=== PATIENT | female | born 1950 | race African-American/Black ===

== ENCOUNTER 2021-06-08 13:35 | Outpatient (CLI) | payer MEDICARE, MEDICAID, SELFPAY | END 2021-06-08 13:36 | disposition home or self-care (01) | PROVIDERS: PCP Internal Medicine; Visit Provider Internal Medicine | DX: Z86.69 Personal history of other diseases of the nervous system and sense organs (principal); H90.3 Sensorineural hearing loss, bilateral | CPT/HCPCS: 92557; 92567 ==

== ENCOUNTER 2021-06-08 15:00 | Outpatient (RCR) | payer MEDICAID, SELFPAY | END 2021-07-15 23:59 | disposition home or self-care (01) | LOC: ANHBWCAUD 15:00 | PROVIDERS: PCP Internal Medicine; Visit Provider Internal Medicine | DX: Z46.1 Encounter for fitting and adjustment of hearing aid (principal) | CPT/HCPCS: V5014; V5160; V5261; V5264 ==

== ENCOUNTER 2021-08-08 12:43 | Inpatient (IN) | payer MEDICARE, MEDICAID, SELFPAY ==
--- NOTE | ~2021-08-08 | XR_ITS ---
EXAMINATION: XR chest 2V DATE: 08/08/2021 13:59 INDICATION: Hemoptysis. TECHNIQUE: Frontal and lateral views of the chest were obtained. COMPARISON: None. FINDINGS: There are airspace opacities in right lower lung zone and left mid and lower lung zones. No pleural effusion or pneumothorax. The heart size is normal. IMPRESSION: 1. Airspace opacities in right lower lung zone and left mid and lower lung zones, consistent with hem orrhage versus pneumonia. Reviewed, dictated and finalized at location A. IMPRESSION: 1. Airspace opacities in right lower lung zone and left mid and lower lung zone s, consistent with hemorrhage versus pneumonia.
--- NOTE | ~2021-08-08 | XR_ITS ---
XR chest 2V 08/10/2021 13:09 Indication: Pneumonia Procedure: AP and lateral views of the chest Comparison: 08/08/2021 Findings: Bibasilar airspace disease, consistent with pneumonia. No significant effusion or pneumotho rax. No acute osseous abnormality. Impression: 1: Bibasilar airspace disease, consistent with pneumonia. Reviewed, dictated and finalized at location B. Impression: 1: Bibasilar airspace disease, consistent with pneumonia.
--- NOTE | ~2021-08-08 | US_ITS ---
EXAMINATION: US venous doppler UE DATE: 08/11/2021 10:27 INDICATION: Upper limb deep vein thrombosis. TECHNIQUE: Grayscale ultrasound images without and with compression and Doppler ultrasound images of the bilateral upper extremity veins were obtained. COMPARISON: None. FINDINGS: The visualized portions of the right internal jugular vein, subclavian vein, axillary vein, brachial veins, basilic vein, cephalic vein, radial vein, and ulnar vein are patent. The visualized portions of the right internal jugular vein, brachial veins, basilic vein, cephalic ve in, radial vein, and ulnar vein are patent. There is thrombus in left subclavian vein and axillary ve in. IMPRESSION: 1. Deep vein thrombosis involving left subclavian vein and left axillary vein. Reviewed, dictated and finalized at location A.
--- NOTE | ~2021-08-08 | CT_ITS ---
EXAMINATION: CTA chest PE protocol DATE: 08/08/2021 17:03 INDICATION: Hemoptysis. Assess for active hemorrhage. TECHNIQUE: Computed tomography (CT) pulmonary angiogram of the chest was performed with 100 mL Omnipa que-350 intravenous contrast. Additional 3D reconstructions utilizing coronal maximum intensity proje ction (MIP) were performed. Automated exposure control and iterative reconstruction technique were em ployed. The dose-length product was 782.26 mGy-cm. COMPARISON: None FINDINGS: Excellent contrast opacification of the pulmonary arteries. There is moderate streak artifact from de nse contrast in the right subclavian vein, superior vena cava and right atrium as well as several car diac monitoring leads. Mild to moderate basilar predominant scattered respiratory motion artifact. To gether this decreases sensitivity in some of the segmental and subsegmental pulmonary arteries most s ignificantly at the lung bases. No evident pulmonary embolism. Small left pleural effusion. There is a 2.4 x 1.6 cm thick-walled cavitary mass with spiculated margins at the right apex. Patchy consolida tion in the lingula and left lower lobe. There are linear and more subtle patchy groundglass opacitie s in the right lower lobe. Cardiomegaly. Atherosclerotic coronary artery calcifications. No pericardial effusion. There is reflu x of some contrast into the inferior vena cava and hepatic veins consistent with tricuspid regurgitat ion. Thoracic aorta is normal in caliber with no dissection. Enlargement of the central pulmonary art eries consistent with pulmonary arterial hypertension. Multinodular goiter with largest nodule measur ing 1.7 cm and the left thyroid lobe. Mildly prominent prevascular mediastinal lymph nodes measuring up to 9 mm in maximal short axis diameter. Small sliding-type hiatal hernia. 7.8 x 6.2 x 5.9 cm hypoenhancing mass which appears to arise from t he tail of the pancreas concerning for primary pancreatic cancer. The mass abuts the posterior margin of the gastric body with effacement of the intervening fat plane. No pathologically enlarged upper a bdominal lymphadenopathy. Moderate thoracic spondylosis with bridging osteophytes at multiple levels consistent with diffuse idiopathic skeletal hyperostosis (DISH). IMPRESSION: 1. No evident pulmonary embolism. Sensitivity decreased in the smaller segmental and subsegmental pul monary arteries particularly at the lung bases by respiratory motion and streak artifact. 2. 7.8 cm mass at the tail the pancreas concerning for primary pancreatic carcinoma. 3. 2.4 x 1.6 cm thick-walled cavitary mass at the right apex which could be infectious or malignant e tiology, the latter either primary or metastatic. 4. Patchy lung disease in the lingula, left lower and to lesser degree right lower lobes concerning f or pneumonia. 5. Cardiomegaly. 6. Enlargement of the central pulmonary arteries consistent with pulmonary arterial hypertension. 7. Small sliding-type hiatal hernia. 8. Multinodular goiter. Reviewed, dictated and finalized at location A. IMPRESSION: 1. No evident pulmonary embolism. Sensitivity decreased in the smaller segmenta l and subsegmental pulmonary arteries particularly at the lung bases by respira tory motion and streak artifact. 2. 7.8 cm mass at the tail the pancreas concerning for primary pancreatic carci noma. 3. 2.4 x 1.6 cm thick-walled cavitary mass at the right apex which could be inf ectious or malignant etiology, the latter either primary or metastatic. 4. Patchy lung disease in the lingula, left lower and to lesser degree right lo wer lobes concerning for pneumonia. 5. Cardiomegaly. 6. Enlargement of the central pulmonary arteries consistent with pulmonary iker rial hypertension. 7. Smal
[2021-08-08 12:53] VITALS: BP 101/71; PULSE 75; RESP 18; TEMP 37.1; O2SAT 99
--- NOTE | 2021-08-08 12:57 | ED.GENADULT ---
HPI - General Adult General Chief complaint: Unspecified Stated complaint: hemoptysis Time Seen by Provider: 08/08/21 12:57 Source: EMS, old records reviewed and other (Transferring physician) Mode of arrival: EMS Limitations: no limitations History of Present Illness HPI narrative: Patient is a 71-year-old female with a history of type 2 diabetes, symptomatic anemia, Covid, bilateral upper extremity DVT currently on anticoagulation with Lovenox, presenting to the emergency department for evaluation of hemoptysis. Patient has been admitted at her inpatient rehabilitation facility in which the patient started to develop large-volume hemoptysis this morning, thus the physician from the inpatient rehabilitation facility called to facilitate transfer of this patient to our emergency department patient reports cough with hemoptysis and large blood clot. Denies fever, chills, chest pain. Patient is quite hard of hearing and poor historian generally. Her transferring sit position felt that patient would need to be evaluated for the hemoptysis with anticoagulation discontinued but in the setting of numerous upper extremity DVTs there would need to be some intervention done to facilitate resolution of this. Per chart review, the patient was admitted at [facility] initially. Pt refusing to be transferred there. I will try to request records. Related Data Home Medications Medication Instructions Recorded Confirmed amlodipine 5 mg PO DAILY 08/06/21 08/06/21 brimonidine 1 drp EACH EYE BID 08/06/21 08/06/21 clonidine HCl 0.2 mg PO BID 08/06/21 08/06/21 famotidine 20 mg PO BID PRN 08/06/21 08/06/21 furosemide 40 mg PO BID 08/06/21 08/06/21 insulin aspart U-100 [Novolog 18 unit SUBCUT DAILY 08/06/21 08/06/21 Flexpen U-100 Insulin] insulin detemir U-100 [Levemir 20 unit SUBCUT HS 08/06/21 08/06/21 FlexTouch U-100 Insuln] latanoprost 1 drp EACH EYE QPM 08/06/21 08/06/21 lisinopril 10 mg PO DAILY 08/06/21 08/06/21 metoprolol tartrate 100 mg PO BID 08/06/21 08/06/21 simvastatin 20 mg PO DAILY 08/06/21 08/06/21 spironolactone 25 mg PO DAILY 08/06/21 08/06/21 Allergies Allergy/AdvReac Type Severity Reaction Status Date / Time No Known Allergies Allergy Verified 07/30/21 23:56 Review of Systems Review of Systems: CONSTITUTIONAL: Denies fever, chills, or sweats. EYES: Denies visual changes, redness, or discharge. ENT: Denies rhinorrhea, congestion, sore throat, or otalgia. CARDIOVASCULAR: Denies chest pain, palpitations, or edema. RESPIRATORY: Reports cough and hemoptysis GASTROINTESTINAL: Denies abdominal pain, nausea, vomiting, or diarrhea. GENITOURINARY: Denies dysuria or hematuria. SKIN: Denies rash or itching. MUSCULOSKELETAL: Denies back pain, joint pain, or myalgia. NEUROLOGIC: Denies headache, numbness, or weakness. [facility] Past Medical History Medical History (Updated 08/08/21 @ 19:01 by Maura Castro MD) Acute blood loss anemia Acute kidney injury Atrial fibrillation Chronic kidney disease Deep vein thrombosis (DVT) of left upper extremity Diabetes mellitus Diabetic neuropathy associated with diabetes mellitus due to underlying condition Diastolic congestive heart failure DKA (diabetic ketoacidosis) DVT prophylaxis Dysphagia Epistaxis due to trauma Hearing loss Hemoptysis HTN (hypertension) Hyperkalemia Hyperkalemia of Hypernatremia Localized swelling of both lower extremities Obstructive sleep apnea Pneumonia due to COVID-19 virus Social History Social History (Updated 08/02/21 @ 16:02 by Sonia Gamino DO) Social History: Lives alone in an apartment Smoking status: Never smoker Second hand tobacco smoke exposure: No Exam Narrative: GENERAL: Awake, alert, conversant, pt is hard of hearing HEAD: Normocephalic, atraumatic. EYES: PERRLA and EOMI. ENT: Nares clear, no rhinorrhea or epistaxis. Mucous membranes dry; dried blood present in the mouth and posterior oropharynx, no
--- NOTE | 2021-08-08 13:13 | ECG_ITS ---
Measurements Intervals [place] Rate: 72 P: 1 MS: 131 QRS: -18 QRSD: 77 T: -16 QT: 383 QTc: 422 Interpretive Statements SINUS RHYTHM LOW QRS VOLTAGE IN PRECORDIAL LEADS [QRS DEFLECTION < 1.0 mV IN CHEST LEADS] PATTERN CONSISTENT WITH PULMONARY DISEASE POOR R-WAVE PROGRESSION, CANNOT RULE OUT OLD ANTERIOR LA NO PREVIOUS ECG AVAILABLE FOR COMPARISON Electronically Signed On 08-08-2021 17:01:57 CDT by Amy Medina M.D.
[2021-08-08 15:08] LABS: Basophils Absolute Auto 0.1 K/mm3 (0.0-0.1); Basophils Percent Auto 0.7 % (0.2-1.2); Eosinophils Absolute Auto 0.2 K/mm3 (0-0.3); Eosinophils Percent Auto 2.4 % (0-4.4); Hemoglobin 8.5 g/dL (12.0-15.0); Immature Granulocyte Absolute 0.02 K/mm3 (0.00-0.031); Immature Granulocyte Percent A 0.3 % (0-0.5); Lymphocytes Absolute Auto 3.09 K/mm3 (0.9-3.2); Lymphocytes Percent Auto 43.1 % (18.3-44.2); Mean Corpuscular HGB Conc 31.5 g/dl (32-36); Mean Corpuscular Hemoglobin 28.9 pg (26-34); Mean Corpuscular Volume 91.8 fl (80-100); Mean Platelet Volume 11.2 fl (7.4-10.4); Monocytes Absolute Auto 0.6 K/mm3 (0.1-0.6); Monocytes Percent Auto 8.2 % (2.6-8.5); Neutrophils Absolute Auto 3.3 K/mm3 (1.3-6.7); Neutrophils Percent Auto 45.3 % (45.5-73.1); Platelet Count Result 285 k/mm3 (150-375); Red Blood Count 2.94 M/mm3 (4.2-5.4); Red Cell Distribution Width 15.9 % (11.5-14.5); White Blood Count 7.2 K/mm3 (4.5-10.0)
[2021-08-08 15:19] LABS: INR 1.1; Partial Thromboplastin Time 36.6 SECONDS (22.3-36.8); Prothrombin Time 14.1 Seconds (11.1-14.7)
[2021-08-08 15:20] LABS: Alanine Aminotransferase 76 U/L (4-35); Alkaline Phosphatase 122 U/L (38-126); Anion Gap 4 mmol/L (8-16); Aspartate Amino Transferase 123 U/L (14-36); Bilirubin,Total 0.3 mg/dL (0.2-1.3); Blood Urea Nitrogen 22 mg/dL (7-17); CRP 4.9 mg/dL (<1.0); Calcium 7.8 mg/dL (8.4-10.2); Carbon Dioxide 33 mmol/L (22-30); Chloride 100 mmol/L (98-107); Estimated CRCL calculation 46 ml/min; Estimated Glomerular Filt Rate 54; Glucose 181 mg/dL (65-110); Sodium 137 mmol/L (137-145)
[2021-08-08 15:29] LABS: NT Pro B Type Natriuretic Pept 2750 pg/mL (5-100); Troponin I 0.017 ng/mL (0.000-0.034)
[2021-08-08 20:00] VITALS: PULSE 81
[2021-08-08 21:04] LABS: Glucose Point of Care 138 mg/dl (65-105)
[2021-08-08 21:05] VITALS: BP 152/82; PULSE 87; RESP 18; TEMP 36.9; O2SAT 100
--- NOTE | 2021-08-08 21:13 | ADMGEN ---
This patient, Elena Magdaleno, was admitted to 3 [facility] Surg Room 312-01. Patient/family oriented to hospital policies and general routines including ID bracelet, bed and alarms, visiting hours, pain management, procedures, bathroom and other care routines, personal items, smoking policy, room service/diet, and visiting hours. Information on how to activate the Rapid Response Team has been discussed. Patient/Family are encouraged to report perceived risks to care and to ask questions if they do not understand what they are told or what they should do.
[2021-08-08 22:12] LABS: Hematocrit 28.1 % (37.0-47.0); Hemoglobin 8.4 g/dL (12.0-15.0)
--- NOTE | 2021-08-08 22:42 | PM.IMHP ---
H&P: HPI History of Present Illness Date/Time: 08/08/21 22:42 Chief Complaint: Hemoptysis Narrative: This is a 71-year-old female who presents from [facility] for hemoptysis/hematemesis. She was recently admitted for DKA along with COVID pneumonia from June 24 2021 was septic and was intubated during that admission. Patient improved and no extubated on 07/05/2021. She was subsequently discharged to rehabilitation on 07/30/2021. She was diagnosed with ERIN metabolic encephalopathy and has underlying history of type 2 diabetes hypertension congestive heart failure diastolic chronic anemia he had issues with ERIN with creatinine as high as 4 on admission with resolution by the time of discharge related to DKA and dehydration. During the hospital admission she also had episode of epistaxis for which ENT had seen and had bilateral nasal balloons in pay place. She subsequently required a trip to the OR for suction cautery to address multiple sites of bleeding bilaterally. Gelfoam was placed through the nasal cavity with subsequent resolution. During the rehabilitation she was diagnosed to have left upper extremity DVT for which he was started on Lovenox. She subsequently started having epistaxis and hemoptysis which she describes at something comes up in her throat and gets it out/spits it out. There was concern of hemoptysis/hematemesis in the ED for which further workup was done. She was found to have right lung cavitary mass concerning for malignancy but could be infectious as well there was patchy lung disease in the lingula left lower lobe concerning for pneumonia. There is also noted 7.8 cm mass at the tail pancreas concerning for primary pancreatic carcinoma. Her hemoglobin is around 8. During her previous admission she had dropped down to the point that she had required transfusion. Withhold findings above, she is getting admitted for further evaluation and management. Pulmonary, GI, Oncology has been consulted with regard to the findings of up. She is quite hard of hearing and a very poor historian likely related to her hearing. Review of Systems Review of Systems: CONSTITUTIONAL: Denies fever, chills, or sweats. EYES: Denies visual changes, redness, or discharge. ENT: Denies rhinorrhea, congestion, sore throat, or otalgia. CARDIOVASCULAR: Denies chest pain, palpitations, or edema. RESPIRATORY: Reports cough and hemoptysis GASTROINTESTINAL: Denies abdominal pain, nausea, vomiting, or diarrhea. GENITOURINARY: Denies dysuria or hematuria. SKIN: Denies rash or itching. MUSCULOSKELETAL: Denies back pain, joint pain, or myalgia. NEUROLOGIC: Denies headache, numbness, or weakness. [facility] Past Medical History Medical History (Updated 08/08/21 @ 19:01 by Maura Castro MD) Acute blood loss anemia Acute kidney injury Atrial fibrillation Chronic kidney disease Deep vein thrombosis (DVT) of left upper extremity Diabetes mellitus Diabetic neuropathy associated with diabetes mellitus due to underlying condition Diastolic congestive heart failure DKA (diabetic ketoacidosis) DVT prophylaxis Dysphagia Epistaxis due to trauma Hearing loss Hemoptysis HTN (hypertension) Hyperkalemia Hyperkalemia of Hypernatremia Localized swelling of both lower extremities Obstructive sleep apnea Pneumonia due to COVID-19 virus Social History Social History (Updated 08/02/21 @ 16:02 by Sonia Gamino DO) Social History: Lives alone in an apartment Smoking status: Never smoker Second hand tobacco smoke exposure: No Alcohol intake: unknown Substance use: unknown Spiritual care concerns: No Meds Home Medications and Allergies Home Medications Medication Instructions Recorded Confirmed Type brimonidine 1 drp EACH EYE BID 08/06/21 08/08/21 History clonidine HCl 0.2 mg PO BID 08/06/21 08/08/21 History famotidine 20 mg PO BID PRN 08/06/21 08/08/21 History furosemide 40 mg PO BID 08/06/21 08/08/21 History latano
[2021-08-08 23:40] VITALS: BMI 35.5
[2021-08-09] VITALS (12 sets, daily range): BP systolic 124–135; BP diastolic 72–88; PULSE 67–89; RESP 19–20; TEMP 35.9–36.2; O2SAT 94–100
[2021-08-09 00:55] LABS: Hematocrit 26.9 % (37.0-47.0); Hemoglobin 8.3 g/dL (12.0-15.0)
--- NOTE | 2021-08-09 06:16 | PC.NURSE ---
Dr Caraballo ordered a TB QFT gold in tube routine test. Spoke with Dr Caraballo regarding patient's isolation status. Dr Caraballo explained patient does not need to be on isolation as this time. Spoke with executive housekeeper Anu and she confirmed patient does not need to be on isolation at this time.
[2021-08-09 06:23] LABS: Basophils Percent Auto 0.5 % (0.2-1.2); Eosinophils Absolute Auto 0.2 K/mm3 (0-0.3); Eosinophils Percent Auto 3.7 % (0-4.4); Hematocrit 26.3 % (37.0-47.0); Hemoglobin 7.9 g/dL (12.0-15.0); Immature Granulocyte Absolute 0.02 K/mm3 (0.00-0.031); Immature Granulocyte Percent A 0.4 % (0-0.5); Lymphocytes Absolute Auto 2.43 K/mm3 (0.9-3.2); Lymphocytes Percent Auto 43.1 % (18.3-44.2); Mean Corpuscular Hemoglobin 28.9 pg (26-34); Mean Corpuscular Volume 96.3 fl (80-100); Mean Platelet Volume 11.5 fl (7.4-10.4); Monocytes Absolute Auto 0.6 K/mm3 (0.1-0.6); Neutrophils Absolute Auto 2.3 K/mm3 (1.3-6.7); Neutrophils Percent Auto 41.3 % (45.5-73.1); Platelet Count Result 252 k/mm3 (150-375); Red Blood Count 2.73 M/mm3 (4.2-5.4); Red Cell Distribution Width 16.1 % (11.5-14.5); White Blood Count 5.6 K/mm3 (4.5-10.0)
[2021-08-09 06:38] LABS: Alanine Aminotransferase 74 U/L (4-35); Albumin Level 2.8 g/dL (3.5-5.1); Alkaline Phosphatase 88 U/L (38-126); Anion Gap 4 mmol/L (8-16); Aspartate Amino Transferase 106 U/L (14-36); Bilirubin,Total 0.3 mg/dL (0.2-1.3); Blood Urea Nitrogen 21 mg/dL (7-17); Calcium 7.5 mg/dL (8.4-10.2); Carbon Dioxide 33 mmol/L (22-30); Chloride 98 mmol/L (98-107); Estimated CRCL calculation 55 ml/min; Estimated Glomerular Filt Rate > 60; Glucose 195 mg/dL (65-110); Potassium 3.9 mmol/L (3.4-5.0); Sodium 135 mmol/L (137-145)
[2021-08-09] MEDS: BRIMONIDINE TARTRATE 0.15% 5 ML OPHTH SOLN 1 DROP EACH EYE ×2 (07:58→17:28)
[2021-08-09] MEDS: TIZANIDINE HCL 2 MG TABLET PO (07:59)
[2021-08-09] MEDS: hydrALAZINE HCL 25 MG TABLET PO ×3 (07:59→17:29)
[2021-08-09] MEDS: METOPROLOL TARTRATE 50 MG TAB PO ×2 (07:59→20:23)
[2021-08-09] MEDS: SPIRONOLACTONE 12.5 MG TABLET PO (07:59)
[2021-08-09] MEDS: GABAPENTIN 100 MG CAPSULE PO ×2 (07:59→17:29)
[2021-08-09] MEDS: FAMOTIDINE 20 MG TABLET PO (07:59)
[2021-08-09] MEDS: cloNIDine HCL 0.2 MG TABLET PO ×2 (08:00→17:28)
[2021-08-09] MEDS: DOCUSATE SODIUM 100 MG CAPSULE PO (08:00)
[2021-08-09] MEDS: lisinopriL 5 MG TABLET PO (08:00)
[2021-08-09] MEDS: FUROSEMIDE 40 MG TABLET PO ×2 (08:00→17:29)
[2021-08-09] MEDS: INSULIN GLARGINE (*BKC) 100 UNITS/ML 10 UNITS SUB-Q (08:04)
--- NOTE | 2021-08-09 09:24 | PC.NURSE ---
LUIS Hdez to see pt later this afternoon around 5pm.
[2021-08-09] MEDS: OXYMETAZOLINE HCL 0.05% NAS 15 ML BTL (*BKC) 1 SPRAY NASAL ×2 (09:25→20:24)
[2021-08-09 09:39] LABS: Glucose Point of Care 161 mg/dl (65-105)
--- NOTE | 2021-08-09 09:49 | PM.CNPUL ---
Assessment and Plan Assessment and plan (1) Epistaxis: Code(s): R04.0 - Epistaxis Status: Acute (2) Cavitary lung disease: Code(s): J98.4 - Other disorders of lung Status: Acute Assessment and Plan: 71-year-old female with history of diabetes, was recently hospitalized at another hospital with 1 episode of unresponsiveness and acute respiratory failure related to DKA and pneumonia. Pneumonia could be due to COVID 19 and/or aspiration pneumonia for which she was treated with Unasyn IV followed by Augmentin p.o.. The patient presented with what is reported as hemoptysis although she has had no episodes of coughing up blood. Per RN, the patient was spitting out blood rather than coughing up blood which makes epistaxis very likely. Of note, she recently had recurrent epistaxis for which she required operative intervention by ENT in the OR during hospitalization at [facility]. On the admission chest CT, the patient has cavitary lesion in the apical segment of the right upper lobe as well as infiltrates in the left lung. Given the history of bilateral patchy infiltrates during last hospitalization, and also history of unresponsiveness, this could be possibly related to aspiration pneumonia. Differential diagnosis in addition to recent aspiration pneumonia includes mycobacterial or other fungal infection, and also malignancy. The patient does not appear to be septic and QuantiFERON gold TB test is pending. She has no respiratory symptoms such as cough or fever to suggest ongoing respiratory infection. She has been treated with antibiotics for possible lower respiratory tract infection. Plan is as follows. Continue with current treatment for now. I have requested previous chest imaging studies from [facility]. Following review of recent x-rays from the other facility, we will consider bronchoscopy if there is any evidence of new infection accounting for the cavitary lesion in the right lung or evidence of this being malignancy. (3) Mass of pancreas: Code(s): K86.89 - Other specified diseases of pancreas Status: Acute (4) Deep vein thrombosis of upper extremity: Code(s): I82.629 - Acute embolism and thrombosis of deep veins of unspecified upper extremity Status: Acute (5) Hearing loss: Code(s): H91.90 - Unspecified hearing loss, unspecified ear Status: Acute (6) Dysphagia: Code(s): R13.10 - Dysphagia, unspecified Status: Acute (7) Pneumonia due to COVID-19 virus: Code(s): U07.1 - COVID-19; J12.82 - Pneumonia due to coronavirus disease 2019 Status: Acute (8) Chronic kidney disease: Code(s): N18.9 - Chronic kidney disease, unspecified Status: Acute History of Present Illness History of Present Illness Consult date: 08/09/21 Chief complaint: Hemoptysis, cavitary lesion, anemia Narrative: this 71-year-old female was brought into the emergency room with 1 day history of possible hemoptysis. The patient has multiple medical problems including diabetes mellitus chronic kidney disease obstructive airway disease possibly due to asthma, GERD, hearing impairment. The patient has significant hearing impairment and this report is based on information obtained after reviewing the patient's records. The patient was able only to answer very simple questions due to severe hearing impairment. Reportedly the patient was hospitalized unresponsive at [facility] in late May of 2021. She was found to have DKA with blood sugar over 980, acute renal failure, as well as respiratory failure for which she was intubated. She was found to have a positive PCR test for COVID-19. Reportedly the chest imaging studies during the last hospitalization at [facility] showed bilateral patchy infiltrates. Chest imaging studies from [facility] are not available for review. The patient was transfused x
[2021-08-09 12:31] LABS: Hematocrit 26.4 % (37.0-47.0); Hemoglobin 8.1 g/dL (12.0-15.0)
[2021-08-09 16:31] LABS: Glucose Point of Care 117 mg/dl (65-105)
--- NOTE | 2021-08-09 17:46 | WPDGICN ---
Assessment and Plan Assessment and plan (1) Acute on chronic blood loss anemia: Code(s): D62 - Acute posthemorrhagic anemia Status: Acute Assessment and Plan: this is most likely from epistaxis (required recent treatment by ENT) and questionable hemoptysis (also she has cavitary lesion and recent hospitalization for COVID in icu) unlikely GI source, no need of EGD at this point (2) Epistaxis: Code(s): R04.0 - Epistaxis Status: Acute Assessment and Plan: by primary, ent evaluated patient in past lovenox on hold now (3) Cavitary lung disease: Code(s): J98.4 - Other disorders of lung Status: Acute (4) Mass of pancreas: Code(s): K86.89 - Other specified diseases of pancreas Status: Acute Assessment and Plan: located in tail of pancreas, large size no jaundice or signs of obstruction will need biopsy to confirm diagnosis but we arrange as outpatient (ideally it can be done with EUS of pancreas at another facility), ERCP is not option because location of mass oncology to see patient (5) Deep vein thrombosis of upper extremity: Code(s): I82.629 - Acute embolism and thrombosis of deep veins of unspecified upper extremity Status: Acute Assessment and Plan: lovenox on hold (6) Diabetes mellitus: Code(s): E11.9 - Type 2 diabetes mellitus without complications Status: Acute (7) Pneumonia due to COVID-19 virus: Code(s): U07.1 - COVID-19; J12.82 - Pneumonia due to coronavirus disease 2018 Status: Acute GI Consult Note Consult date/time: 08/09/21 17:46 Reason for consult: pancreatic lesion, anemia HPI: Elena Magdaleno is a 71 year old female with recent prolonged hospitalization with renal failure that resolved, DKA, COVID pneumonia earlier this year, she was in ICU intubated and subsequently discharged to rehabilitation. Based on records during the hospital admission she also had episode of epistaxis for which required ENT treatment, subsequently also was taken to the OR for suction cautery, gelfoam was placed through the nasal cavity with subsequent resolution. She also was diagnosed to have left upper extremity DVT and was started on Lovenox. She was sent here because started again with epistaxis and also blood comes up in her throat . CT scan was done in ER that was reviewed that showed right lung cavitary mass concerning for malignancy but could be infectious, also pneumonia, there is also 7.8 cm mass at the tail pancreas concerning for primary pancreatic carcinoma. Her hemoglobin has been ~ 8. No report of melena. Review of Systems Constitutional: Constitutional: Reports fatigue Eyes: Eyes: Denies blurry vision ENT: Denies Normal hearing present and Reports epistaxis Cardiovascular: Cardiovascular: Denies chest pain Respiratory: Respiratory: Reports cough Gastrointestinal: Gastrointestinal: Denies abdominal pain and Denies melena Genitourinary: Genitourinary: Denies hematuria Musculoskeletal: Musculoskeletal: Denies neck pain Integumentary/Breasts: Skin/Breast: Denies dry skin Neurologic: Denies headache(s) Psychiatric: Psychiatric: Denies behavioral changes [facility] Past Medical History Medical History (Updated 08/09/21 @ 17:54 by Orlin Russo MD) Acute blood loss anemia Acute kidney injury Acute on chronic blood loss anemia Atrial fibrillation Chronic kidney disease Deep vein thrombosis (DVT) of left upper extremity Diabetes mellitus Diabetic neuropathy associated with diabetes mellitus due to underlying condition Diastolic congestive heart failure DKA (diabetic ketoacidosis) DVT prophylaxis Dysphagia Epistaxis due to trauma Hearing loss Hemoptysis HTN (hypertension) Hyperkalemia Hyperkalemia of Hypernatremia Localized swelling of both lower extremities Obstructive sleep apnea Pneumonia due to COVID-19 virus Social History Social History (Updated 08/02/21 @ 16:02 by Sonia
--- NOTE | 2021-08-09 18:47 | WPDCN ---
Assessment and Plan Assessment and plan (1) Epistaxis: Code(s): R04.0 - Epistaxis Status: Acute Assessment and Plan: Nasal saline spray 6 times per day two large squirts, ok to blow nose, mupirocin abx ointment 4 times per day upfront, ok to use a good amount. No active bleeding. Nose has been packed prior to my exam. Will suction out packing over the next week. Tomorrow and Monday. Salazar is keeping the nose very moist with ointment and saline spray. HPI Data of Consult Date/Time: 08/09/21 18:47 Requesting Physician: Gerald Booth MD Primary Care Provider: Emmanuelle Muse, Consult Narrative Narrative: Elena Magdaleno is a 71 year old female with history of nose bleed. Also severe subjective hearing loss. ENT consulted for further evaluation. [facility] Past Medical History Medical History (Updated 08/09/21 @ 17:54 by Orlin Russo MD) Acute blood loss anemia Acute kidney injury Acute on chronic blood loss anemia Atrial fibrillation Chronic kidney disease Deep vein thrombosis (DVT) of left upper extremity Diabetes mellitus Diabetic neuropathy associated with diabetes mellitus due to underlying condition Diastolic congestive heart failure DKA (diabetic ketoacidosis) DVT prophylaxis Dysphagia Epistaxis due to trauma Hearing loss Hemoptysis HTN (hypertension) Hyperkalemia Hyperkalemia of Hypernatremia Localized swelling of both lower extremities Obstructive sleep apnea Pneumonia due to COVID-19 virus Social History Social History (Updated 08/02/21 @ 16:02 by Sonia Gamino DO) Social History: Lives alone in an apartment Smoking status: Never smoker Second hand tobacco smoke exposure: No Alcohol intake: unknown Substance use: unknown Spiritual care concerns: No Meds Home Medications and Allergies Home Medications Medication Instructions Recorded Confirmed Type brimonidine 1 drp EACH EYE BID 08/06/21 08/08/21 History clonidine HCl 0.2 mg PO BID 08/06/21 08/08/21 History famotidine 20 mg PO BID PRN 08/06/21 08/08/21 History furosemide 40 mg PO BID 08/06/21 08/08/21 History latanoprost 1 drp EACH EYE HS 08/06/21 08/08/21 History lisinopril 5 mg PO DAILY 08/06/21 08/08/21 History metoprolol tartrate 50 mg PO BID 08/06/21 08/08/21 History simvastatin 20 mg PO HS 08/06/21 08/08/21 History spironolactone 12.5 mg PO QAM 08/06/21 08/08/21 History acetaminophen 650 mg PO Q6H PRN 08/08/21 08/08/21 History albuterol sulfate 2.5 mg INHALATION QID PRN 08/08/21 08/08/21 History docusate sodium 100 mg PO DAILY 08/08/21 08/08/21 History enoxaparin 100 mg SUBCUT Q12H 08/08/21 08/08/21 History gabapentin 100 mg PO BID 08/08/21 08/08/21 History guaifenesin 200 mg PO Q6-12H PRN 08/08/21 08/08/21 History hydralazine 25 mg PO TID 08/08/21 08/08/21 History insulin glargine 5 unit SUBCUT HS 08/08/21 08/08/21 History insulin glargine 10 unit SUBCUT DAILY 08/08/21 08/08/21 History insulin lispro 1 sliding scale dose SUBCUT 08/08/21 08/08/21 History USEASDIRECTD ondansetron 4 mg PO Q6H 08/08/21 08/08/21 History polyethylene glycol 3350 17 g PO QAM PRN 08/08/21 08/08/21 History tizanidine 2 mg PO DAILY 08/08/21 08/08/21 History Allergies Allergy/AdvReac Type Severity Reaction Status Date / Time No Known Allergies Allergy Verified 07/30/21 23:56 Vital Signs Vital Signs - 24 hr 08/08/21 20:00 08/08/21 21:05 08/09/21 04:00 Temperature 36.9 C Pulse Rate 81 87 89 Respiratory Rate 18 Blood Pressure 152/82 H Pulse Oximetry 100 08/09/21 06:00 08/09/21 07:59 08/09/21 08:00 Temperature 36.1 C L Pulse Rate 84 82 82 Respiratory Rate 20 20 Blood Pressure 135/88 Pulse Oximetry 99 99 08/09/21 08:12 08/09/21 12:00 08/09/21 14:00 Temperature 35.9 C L Pulse Rate 67 67 Respiratory Rate 19 Blood Pressure 124/75 Pulse Oximetry 99 100 08/09/21 16:00 Temperature Pulse Rate 67 Respiratory Rate Blood Pressure Pulse Oximet
--- NOTE | 2021-08-09 18:55 | PDONCCN ---
HPI - Date of Consult Date/Time: 08/09/21 18:55 Requesting Physician: Gerald Booth MD Primary Care Provider: Emmanuelle Muse, - Consult Narrative Reason for consult: Lung and pancreatic mass Narrative: Elena Magdaleno is a 71 year old female who was diagnosed with COVID pneumonia in May of 2021 requiring intubation at that time. She was subsequently discharged to the rehab in July 30, 2021. During the rehab she was diagnosed with left upper extremity DVT for which she was started on Lovenox. She subsequently developed epistaxis and hemoptysis. She was brought into the hospital with nose bleed and hemoptysis. CT a chest showed no PE but 7.8 cm mass at the tail of the pancreas concerning for primary pancreatic carcinoma with 2.4 x 1.6 cm cavitary mass at the right apex. Patient is a lifelong nonsmoker. Labs also showed anemia with hemoglobin of 8.1. Patient is hard of hearing and did not bring her hearing aid. Most of the history was obtained with the help of the son present in the room. Review of Systems - Review of Systems All systems reviewed & are unremarkable except as noted in HPI and bel - Neurologic Denies hearing normal, Denies behavioral changes, Denies headache(s) [facility] Medical History: Medical History (Last Updated 08/09/21 @ 17:54 by Orlin Russo MD) Acute blood loss anemia Acute kidney injury Acute on chronic blood loss anemia Atrial fibrillation Chronic kidney disease Deep vein thrombosis (DVT) of left upper extremity Diabetes mellitus Diabetic neuropathy associated with diabetes mellitus due to underlying condition Diastolic congestive heart failure DKA (diabetic ketoacidosis) DVT prophylaxis Dysphagia Epistaxis due to trauma Hearing loss Hemoptysis HTN (hypertension) Hyperkalemia Hyperkalemia of Hypernatremia Localized swelling of both lower extremities Obstructive sleep apnea Pneumonia due to COVID-19 virus - Social History Social History: Social History (Last Updated 08/02/21 @ 16:02 by Sonia Gamino DO) Alcohol Use: Alcohol intake: unknown Substance Use: Substance use: unknown Others: Spiritual care concerns: No Smoking Status: Smoking status: Never smoker Second hand tobacco smoke exposure: No Meds Home Medications Medication Instructions Recorded Confirmed Type brimonidine 1 drp EACH EYE BID 08/06/21 08/08/21 History clonidine HCl 0.2 mg PO BID 08/06/21 08/08/21 History famotidine 20 mg PO BID PRN 08/06/21 08/08/21 History furosemide 40 mg PO BID 08/06/21 08/08/21 History latanoprost 1 drp EACH EYE HS 08/06/21 08/08/21 History lisinopril 5 mg PO DAILY 08/06/21 08/08/21 History metoprolol tartrate 50 mg PO BID 08/06/21 08/08/21 History simvastatin 20 mg PO HS 08/06/21 08/08/21 History spironolactone 12.5 mg PO QAM 08/06/21 08/08/21 History acetaminophen 650 mg PO Q6H PRN 08/08/21 08/08/21 History albuterol sulfate 2.5 mg INHALATION QID PRN 08/08/21 08/08/21 History docusate sodium 100 mg PO DAILY 08/08/21 08/08/21 History enoxaparin 100 mg SUBCUT Q12H 08/08/21 08/08/21 History gabapentin 100 mg PO BID 08/08/21 08/08/21 History guaifenesin 200 mg PO Q6-12H PRN 08/08/21 08/08/21 History hydralazine 25 mg PO TID 08/08/21 08/08/21 History insulin glargine 5 unit SUBCUT HS 08/08/21 08/08/21 History insulin glargine 10 unit SUBCUT DAILY 08/08/21 08/08/21 History insulin lispro 1 sliding scale dose SUBCUT 08/08/21 08/08/21 History USEASDIRECTD ondansetron 4 mg PO Q6H 08/08/21 08/08/21 History polyethylene glycol 3350 17 g PO QAM PRN 08/08/21 08/08/21 History tizanidine 2 mg PO DAILY 08/08/21 08/08/21 History Allergies Allergy/AdvReac Type Severity Reaction Status Date / Time No Known Allergies Allergy Verified 07/30/21 23:56 Results - Labs CBC & Chem 7: 08/09/21 12:21 08/09/21 05:46 Labs: Short CBC 03/13/22 03/14/22 03/14/22 Range/Units 22:02 00:44 05:46 WBC
[2021-08-09 19:58] LABS: Iron 64 ug/dL (37-170); Percent Iron Saturation 33 % (20-50)
[2021-08-09] MEDS: LATANOPROST 0.005% OP SOLN 2.5 ML BTL 1 DROP EACH EYE (20:23)
[2021-08-09] MEDS: SIMVASTATIN 20 MG TABLET PO (20:24)
[2021-08-09] MEDS: INSULIN GLARGINE (*BKC) 100 UNITS/ML SUB-Q (20:25)
[2021-08-09 20:41] LABS: Glucose Point of Care 228 mg/dl (65-105)
[2021-08-09 20:51] LABS: Folic Acid 13.4 ng/mL (2.76->20)
[2021-08-10] VITALS (13 sets, daily range): BP systolic 106–138; BP diastolic 57–89; PULSE 57–100; RESP 16–19; TEMP 36.1–36.3; O2SAT 90–100
[2021-08-10 07:52] LABS: Glucose Point of Care 144 mg/dl (65-105)
[2021-08-10] MEDS: BRIMONIDINE TARTRATE 0.15% 5 ML OPHTH SOLN 1 DROP EACH EYE ×2 (08:09→17:02)
[2021-08-10] MEDS: SALINE 0.65% NAS SOLN 44 ML BTL 1 SPRAY NASAL ×3 (08:09→20:29)
[2021-08-10] MEDS: GABAPENTIN 100 MG CAPSULE PO ×2 (08:09→16:21)
[2021-08-10] MEDS: TIZANIDINE HCL 2 MG TABLET PO (08:09)
[2021-08-10] MEDS: hydrALAZINE HCL 25 MG TABLET PO ×3 (08:09→16:21)
[2021-08-10] MEDS: FUROSEMIDE 40 MG TABLET PO ×2 (08:09→16:21)
[2021-08-10] MEDS: lisinopriL 5 MG TABLET PO (08:10)
[2021-08-10] MEDS: METOPROLOL TARTRATE 50 MG TAB PO ×2 (08:10→20:28)
[2021-08-10] MEDS: SPIRONOLACTONE 12.5 MG TABLET PO (08:10)
[2021-08-10] MEDS: INSULIN GLARGINE (*BKC) 100 UNITS/ML 10 UNITS SUB-Q (08:10)
[2021-08-10] MEDS: cloNIDine HCL 0.2 MG TABLET PO ×2 (08:10→16:21)
[2021-08-10] MEDS: OXYMETAZOLINE HCL 0.05% NAS 15 ML BTL (*BKC) 1 SPRAY NASAL ×2 (08:11→20:29)
--- NOTE | 2021-08-10 08:45 | PC.NURSE ---
discussed isolation status with Dr. Allen this morning. patient has lung cancer and abnormal chest xray. Dr. Allen asked to discuss with pulmnology and follow their instructions. Discussed with Dr. Brerios who states that he will review the cxr but feels strongly that patient has pneumonia, possibly from aspiration. Patient does not require isolation at this time
--- NOTE | 2021-08-10 11:14 | PM.PNPUL ---
Progress Note: A&P Additional Plan 71-year-old female with history of diabetes, was recently hospitalized at another hospital with 1 episode of unresponsiveness and acute respiratory failure related to DKA and pneumonia. Pneumonia could be due to COVID 19 and/or aspiration pneumonia for which she was treated with Unasyn IV followed by Augmentin p.o.. The patient presented with what is reported as hemoptysis although she has had no episodes of coughing up blood. Per RN, the patient was spitting out blood rather than coughing up blood which makes epistaxis very likely. Of note, she recently had recurrent epistaxis for which she required operative intervention by ENT in the OR during hospitalization at [facility]. On the admission chest CT, the patient has cavitary lesion in the apical segment of the right upper lobe as well as infiltrates in the left lung. Given the history of bilateral patchy infiltrates during last hospitalization, and also history of unresponsiveness, this could be possibly related to aspiration pneumonia. Differential diagnosis in addition to recent aspiration pneumonia includes mycobacterial or other fungal infection, and also malignancy. The patient does not appear to be septic and QuantiFERON gold TB test is pending. She has no respiratory symptoms such as cough or fever to suggest ongoing respiratory infection. Review of chest diagnostic studies during most recent hospitalization at [facility] showed that the patient had bilateral airspace opacities which were consistent with acute pneumonia. The right upper lobe cavitary lesion was reported on a chest x-ray report about 1 week after admission into the hospital, which again favors evolution of acute necrotic pneumonia rather than malignancy. Mycobacterial or fungal infection appears to be unlikely given the lack of respiratory symptoms such as cough fever night sweats and also normal WBC and mildly elevated CRP. Actual chest images taken at other facility is still pending. Continue with current treatment for now while waiting the chest imaging studies from [facility]. Get two view chest x-ray, repeat CRP, ESR. SCDs for DVT prophylaxis. (3) Mass of pancreas: Code(s): K86.89 - Other specified diseases of pancreas Status: Acute (4) Deep vein thrombosis of upper extremity: Code(s): I82.629 - Acute embolism and thrombosis of deep veins of unspecified upper extremity Status: Acute (5) Hearing loss: Code(s): H91.90 - Unspecified hearing loss, unspecified ear Status: Acute (6) Dysphagia: Code(s): R13.10 - Dysphagia, unspecified Status: Acute (7) Pneumonia due to COVID-19 virus: Code(s): U07.1 - COVID-19; J12.82 - Pneumonia due to coronavirus disease 2019 Status: Acute (8) Chronic kidney disease: Code(s): N18.9 - Chronic kidney disease, unspecified Status: Acute Subjective Date/time seen: 08/10/21 11:14 Patient has no new respiratory symptoms. She has been receiving treatment for epistaxis. She has no fever cough sputum production night sweats. Review of Systems Review of Systems: ROS unobtainable: Yes other ( Unobtainable due to severe hearing impairment.) Exam Narrative: GENERAL APPEARANCE: Well developed, well nourished, alert and cooperative, and appears to be in no acute distress While breathing ambient air SKIN: Inspection of the skin reveals no rashes, ulcerations or petechiae. HEENT: Sclerae anicteric and conjunctivae pink and moist. Extraocular movements were intact and pupils were equal. NECK: Supple. There was no thyroid enlargement, and no tenderness, or masses were felt. CHEST: Normal AP diameter and normal contour without any kyphoscoliosis. LUNGS: Auscultation of the lungs revealed crackles at left base posteriorly, no wheezing CARDIAC: There was a regular rate and rhythm without any murmurs. ABDOMEN: Soft and nontender with
[2021-08-10 11:55] LABS: Glucose Point of Care 181 mg/dl (65-105)
[2021-08-10 12:05] LABS: CRP 4.2 mg/dL (<1.0)
[2021-08-10 13:00] LABS: Erythrocyte Sedimentation Rate > 140 mm/hr (0-20)
--- NOTE | 2021-08-10 15:08 | WPDGIPROGNO ---
Progress Note: A&P Assessment and Plan (1) Mass of pancreas: Code(s): K86.89 - Other specified diseases of pancreas Status: Acute Assessment and Plan: most likely this is malignancy, Dr Harrison will refer patient to [facility] for pancreatic biopsy as outpatient [place] (2) Acute on chronic blood loss anemia: Code(s): D62 - Acute posthemorrhagic anemia Status: Acute Assessment and Plan: this is probably multifactorial, also from recent prolonged hospitalization with pneumonia, lovenox at therapeutic dose and epistaxis no need of endoscopy call if questions (3) Epistaxis: Code(s): R04.0 - Epistaxis Status: Acute Assessment and Plan: ENT on board (4) Pneumonia due to COVID-19 virus: Code(s): U07.1 - COVID-19; J12.82 - Pneumonia due to coronavirus disease 2019 Status: Acute Assessment and Plan: pulmonary on board, had recent pneumonia lung lesion could be necrotizing pneumonia (5) Cough with hemoptysis: Code(s): R04.2 - Hemoptysis Status: Acute (6) Deep vein thrombosis (DVT) of left upper extremity: Code(s): I82.622 - Acute embolism and thrombosis of deep veins of left upper extremity Status: Acute Subjective Date/time seen: 08/10/21 15:08 Interval history: no new events Review of Systems Review of Systems: All systems reviewed & are unremarkable except as noted in HPI and below Exam Const: General: comfortable and no acute distress HENMT: General nose exam: Normal nares present Other: she is very hard of hearing Eyes: General: appearance normal, both eyes and all related structures Neck: Neck: no JVD Resp: Auscultation: clear to auscultation bilaterally Cardio: Rate: regular rate Rhythm: regular rhythm GI: Inspection: non-distended GI Palp: Yes Soft to palpation Skin: General skin exam: normal color Neuro: General: gait normal Speech: normal speech Extrem: General: normal to inspection Psych: Mental Status: mental status grossly normal Objective Data Vital Signs Vital Signs: Vital Signs - 24 hr 08/09/21 16:00 08/09/21 20:00 08/09/21 20:23 Temperature Pulse Rate 67 70 70 Respiratory Rate Blood Pressure Pulse Oximetry 98 08/09/21 22:00 08/09/21 23:00 08/10/21 00:00 Temperature 97.2 F L Pulse Rate 69 69 63 Respiratory Rate 20 Blood Pressure 126/72 Pulse Oximetry 98 94 08/10/21 04:00 08/10/21 06:00 08/10/21 08:00 Temperature 97.4 F L Pulse Rate 66 100 75 Respiratory Rate 18 18 Blood Pressure 127/67 Pulse Oximetry 90 90 08/10/21 08:10 08/10/21 12:00 08/10/21 14:00 Temperature 97 F L Pulse Rate 100 64 65 Respiratory Rate 19 Blood Pressure 109/57 L Pulse Oximetry 100 08/10/21 14:17 Temperature Pulse Rate 71 Respiratory Rate Blood Pressure Pulse Oximetry 95 Intake/Output Intake/Output: Intake & Output 08/07/21 08/08/21 08/09/21 08/10/21 22:59 23:59 23:59 23:59 Intake Total 2955 930 Output Total 3350 600 Balance -395 330 Meds/Results Medications: Active Medications Generic Name Dose Route Start Last Admin Trade Name Freq PRN Reason Stop Dose Admin Acetaminophen 650 mg 08/08/21 18:51 Acetaminophen 325 Mg Tablet PO Q4H PRN Mild Pain (1-3) or Fever Acetaminophen 650 mg 08/09/21 01:40 Acetaminophen 325 Mg Tablet BY MOUTH Q6H PRN Fever Or Pain Albuterol 2.5 mg 08/08/21 23:35 Albuterol Sulfate Neb 2.5 Mg/3 Ml Inh INHALATION QID PRN Shortness Of Breath Or Wheezing Brimonidine Tartrate 1 drop 08/09/21 09:00 08/10/21 08:09 Brimonidine Tartrate 0.15% 5 Ml Ophth Soln EACH EYE 1 drop BID RUBINA Administration Clonidine HCl 0.2 mg 08/09/21 09:00 08/10/21 08:10 Clonidine Hcl 0.2 Mg Tablet PO 0.2 mg BID RUBINA Administration Dextrose 12.5 gm 08/09/21 15:05 Dextrose 50% 25 Gm/50 Ml Syringe IV PUSH PRN PRN
--- NOTE | 2021-08-10 15:53 | P.PNIM_ITS ---
Progress Note: A&P Assessment and Plan (1) Cough with hemoptysis: Code(s): R04.2 - Hemoptysis Status: Acute (2) Lung mass: Code(s): R91.8 - Other nonspecific abnormal finding of lung field Status: Acute (3) Mass of pancreas: Code(s): K86.89 - Other specified diseases of pancreas Status: Acute (4) Anemia: Code(s): D64.9 - Anemia, unspecified Status: Acute (5) Deep vein thrombosis of upper extremity: Code(s): I82.629 - Acute embolism and thrombosis of deep veins of unspecified upper extremity Status: Acute (6) Obstructive sleep apnea: Code(s): G47.33 - Obstructive sleep apnea (adult) (pediatric) Status: Acute (7) Epistaxis due to trauma: Code(s): R04.0 - Epistaxis Status: Acute (8) HTN (hypertension): Code(s): I10 - Essential (primary) hypertension Status: Acute (9) Atrial fibrillation: Code(s): I48.91 - Unspecified atrial fibrillation Status: Acute (10) Acute blood loss anemia: Code(s): D62 - Acute posthemorrhagic anemia Status: Acute (11) Diastolic congestive heart failure: Code(s): I50.30 - Unspecified diastolic (congestive) heart failure Status: Acute (12) Diabetes mellitus: Code(s): E11.9 - Type 2 diabetes mellitus without complications Status: Acute (13) DKA (diabetic ketoacidosis): Code(s): E11.10 - Type 2 diabetes mellitus with ketoacidosis without coma Status: Acute (14) Pneumonia due to COVID-19 virus: Code(s): U07.1 - COVID-19; J12.82 - Pneumonia due to coronavirus disease 2019 Status: Acute Additional Plan # hemoptyiss /hematemesis: i suspect she has an ongoing epistaxis leading to this. she was recently had issues with the same requiring cautery and gelfoal placement. This however got worsened with recent anticoagulation. will consult ENT for possibly cauterisation. I do not think this is coming from her lung as she is not reporting a lot of symtpoms related to coughing but she reprots something comes to her throat and she spits it out. will unfortunately have to hold her anticoagulation until further treatment and evaluation of her bleeding source. GI workup can also be underplayed if the bleeding persists. she is on nasal cannula oxygen which can also cause the bleeding. may use mask if needed. she actualy is not on oxygen prior to this and only placed tonight as she has KAYLA and uses cpap at night I will add afrin nasal spray in the interim for her epistaxis. Unfortunately have to hold her lovenox or anticoagulation due to current ongoing bleeding issue. She does not have thrombocytopenia and do not suspect underlying DIC or HIT TTP as an etiology. Once bleeding issues or when it resolves, placing back on anticoagulation will be ideal. she likely has risk factors for thrombosis due to this new masses # Right apical cavitary mass; infectious vs malignant. ct from 2018 did not have this finding . she is noted to be a never smoker.likely needs biopsy to further evaluate. pulmonary and oncology has been consulted from the ED. TB Gold test # Left lower lobe pneumonia: unclear if these are residual from her recent COVID pneumonia. will place on antibiotics empirically for HCAP due to recent hx. get sputum culture. 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 will get CA 19-9. GI has been consulted. will need further evaluation per GI. # hhx of Atrial fibrillation in her recent admission, seen by retail interior designer at [facility] not on anticoagulation due to bleed and anemia on metoprolol . currently in sinus rhythm. # hypertension on metoprolo
--- NOTE | 2021-08-10 16:08 | PC.NURSE ---
sputum collected sent to lab for analysis.
[2021-08-10 16:51] LABS: Glucose Point of Care 266 mg/dl (65-105)
[2021-08-10] MEDS: INSULIN ASPART (*BKC) 100 UNITS/ML SUB-Q (17:02)
--- NOTE | 2021-08-10 17:26 | PM.PNGS ---
Progress Note: A&P Assessment and Plan (1) Epistaxis: Code(s): R04.0 - Epistaxis Status: Acute Assessment and Plan: Please call me if the patient begins to bleed over the next several days. I would recommend 2-3 times per day large amounts of antibiotic ointment in the anterior nasal passages and frequent throughout the day for 6 times big squirts of saline in the nasal passages, it is okay for the patient blow her nose to get the packing out. Monday I will suction out any packing that remains. If the patient is discharged prior to Monday please have her follow me as an outpatient next week. Subjective Subjective Date/Time Seen: 08/10/21 17:26 Objective Data Vital Signs Vital Signs: Vital Signs - 24 hr 08/09/21 20:00 08/09/21 20:23 08/09/21 22:00 Temperature 36.2 C L Pulse Rate 70 70 69 Respiratory Rate 20 Blood Pressure 126/72 Pulse Oximetry 98 98 08/09/21 23:00 08/10/21 00:00 08/10/21 04:00 Temperature Pulse Rate 69 63 66 Respiratory Rate Blood Pressure Pulse Oximetry 94 08/10/21 06:00 08/10/21 08:00 08/10/21 08:10 Temperature 36.3 C L Pulse Rate 100 75 100 Respiratory Rate 18 18 Blood Pressure 127/67 Pulse Oximetry 90 90 08/10/21 12:00 08/10/21 14:00 08/10/21 14:17 Temperature 36.1 C L Pulse Rate 64 65 71 Respiratory Rate 19 Blood Pressure 109/57 L Pulse Oximetry 100 95 08/10/21 16:00 08/10/21 17:11 Temperature Pulse Rate 67 66 Respiratory Rate Blood Pressure 106/63 Pulse Oximetry Intake/Output Intake/Output: Intake & Output 08/07/21 08/08/21 08/09/21 08/10/21 22:59 23:59 23:59 23:59 Intake Total 2955 1720 Output Total 3350 600 Balance -395 1120 Meds/Results Medications: Active Medications Generic Name Dose Route Start Last Admin Trade Name Freq PRN Reason Stop Dose Admin Acetaminophen 650 mg 08/08/21 18:51 Acetaminophen 325 Mg Tablet PO Q4H PRN Mild Pain (1-3) or Fever Acetaminophen 650 mg 08/09/21 01:40 Acetaminophen 325 Mg Tablet BY MOUTH Q6H PRN Fever Or Pain Albuterol 2.5 mg 08/08/21 23:35 Albuterol Sulfate Neb 2.5 Mg/3 Ml Inh INHALATION QID PRN Shortness Of Breath Or Wheezing Brimonidine Tartrate 1 drop 08/09/21 09:00 08/10/21 17:02 Brimonidine Tartrate 0.15% 5 Ml Ophth Soln EACH EYE 1 drop BID RUBINA Administration Clonidine HCl 0.2 mg 08/09/21 09:00 08/10/21 16:21 Clonidine Hcl 0.2 Mg Tablet PO 0.2 mg BID RUBINA Administration Dextrose 12.5 gm 08/09/21 15:05 Dextrose 50% 25 Gm/50 Ml Syringe IV PUSH PRN PRN Hypoglycemia Protocol Docusate Sodium 100 mg 08/09/21 09:00 08/10/21 08:10 Docusate Sodium 100 Mg Capsule PO Not Given DAILY RUBINA Famotidine 20 mg 08/08/21 23:35 08/09/21 07:59 Famotidine 20 Mg Tablet PO 20 mg BID PRN Administration Heartburn Furosemide 40 mg 08/09/21 09:00 08/10/21 16:21 Furosemide 40 Mg Tablet PO 40 mg BID RUBINA Administration Gabapentin 100 mg 08/09/21 09:00 08/10/21 16:21 Gabapentin 100 Mg Capsule PO 100 mg BID RUBINA Administration Glucagon 1 mg 08/09/21 15:05 Glucagon For Inj 1 Mg Vial IM PRN PRN Hypoglycemia Protocol Glucose 15 gm 08/09/21 15:05 Glucose Oral Gel 15 Gm Of Glucse In 37.5 Gm Tube PO PRN PRN Hypoglycemia Protocol Guaifenesin 200 mg 08/09/21 01:45 Guaifenesin 200 Mg/10 Ml Udc PO Q6H PRN Cough Hydralazine HCl 25 mg 08/09/21 08:00 08/10/21 16:21 Hydralazine Hcl 25 Mg Tablet PO 25 mg TIDWM RUBINA Administration Cefepime HCl 2 gm in 50 mls @ 100 mls/hr 08/09/21 00:00 08/10/21 11:40 Maxipime 2 Gm/D5w 50 Ml IVPB Infused Q12H RUBINA Infusion Vancomycin HCl 1,500 mg in 500 mls @ 333.333 mls/hr 08/09/21 01:00 08/10/21 15:00 Vancomycin 1,500 Mg/D5w 500 Ml IVPB Infused Q18H RUBINA Infusion Dextrose 1,000 mls @ 100 mls/hr 08/09/21 15:05
[2021-08-10] MEDS: NEOMYCIN/POLYMYXIN/BACITRACIN OINTMENT 15 GM TUBE 1 APPLIC TOPICAL ×2 (18:23→20:29)
[2021-08-10] MEDS: SIMVASTATIN 20 MG TABLET PO (20:28)
[2021-08-10] MEDS: LATANOPROST 0.005% OP SOLN 2.5 ML BTL 1 DROP EACH EYE (20:28)
[2021-08-10 20:38] LABS: Glucose Point of Care 135 mg/dl (65-105)
[2021-08-11] VITALS (12 sets, daily range): BP systolic 98–148; BP diastolic 52–89; PULSE 59–73; RESP 16–18; TEMP 35.8–36.1; O2SAT 94–100
[2021-08-11 06:59] LABS: Alanine Aminotransferase 55 U/L (4-35); Alkaline Phosphatase 100 U/L (38-126); Anion Gap 6 mmol/L (8-16); Aspartate Amino Transferase 44 U/L (14-36); Bilirubin,Total 0.3 mg/dL (0.2-1.3); Blood Urea Nitrogen 23 mg/dL (7-17); Calcium 7.6 mg/dL (8.4-10.2); Carbon Dioxide 29 mmol/L (22-30); Chloride 97 mmol/L (98-107); Estimated CRCL calculation 28 ml/min; Estimated Glomerular Filt Rate 30; Glucose 125 mg/dL (65-110); Lipase 49 U/L (23-300); Potassium 4.1 mmol/L (3.4-5.0); Sodium 132 mmol/L (137-145)
[2021-08-11 07:01] LABS: Vancomycin Trough 29.3 ug/mL (10.0-20.0)
[2021-08-11 07:55] LABS: Hematocrit 29.7 % (37.0-47.0); Hemoglobin 8.5 g/dL (12.0-15.0); Mean Corpuscular HGB Conc 28.6 g/dl (32-36); Mean Corpuscular Hemoglobin 29.1 pg (26-34); Mean Corpuscular Volume 101.7 fl (80-100); Mean Platelet Volume 11.6 fl (7.4-10.4); Platelet Count Result 233 k/mm3 (150-375); Red Blood Count 2.92 M/mm3 (4.2-5.4); Red Cell Distribution Width 16.3 % (11.5-14.5); White Blood Count 5.3 K/mm3 (4.5-10.0)
--- NOTE | 2021-08-11 08:51 | PM.PNPUL ---
Progress Note: A&P Additional Plan 71-year-old female with history of diabetes, was recently hospitalized at another hospital with 1 episode of unresponsiveness and acute respiratory failure related to DKA and pneumonia. Pneumonia could be due to COVID 19 and/or aspiration pneumonia for which she was treated with Unasyn IV followed by Augmentin p.o.. The patient presented with what is reported as hemoptysis although she has had no episodes of coughing up blood. Per RN, the patient was spitting out blood rather than coughing up blood which makes epistaxis very likely. Of note, she recently had recurrent epistaxis for which she required operative intervention by ENT in the OR during hospitalization at [facility]. On the admission chest CT, the patient has cavitary lesion in the apical segment of the right upper lobe as well as infiltrates in the left lung. Given the history of bilateral patchy infiltrates during last hospitalization, and also history of unresponsiveness, this could be possibly related to aspiration pneumonia. Differential diagnosis in addition to recent aspiration pneumonia includes mycobacterial or other fungal infection, and also malignancy. The patient does not appear to be septic and QuantiFERON gold TB test is pending. She has no respiratory symptoms such as cough or fever to suggest ongoing respiratory infection. Recent chest radiographic images taken at [facility] are now available for review. On the admission chest x-ray on June 25, there was no evidence of right right upper lobe infiltrate. On a subsequent chest x-ray taken on July 07, there was a right upper lobe nodular density measuring 3.5 cm in its largest dimension. On the chest CT done at [facility] on August 08, this right upper lobe cavitary lesion was now smaller measuring less than 3 cm. On yesterday's film, the right upper lobe lesion was even smaller when compared to the x-ray taken at [facility] on July 07. These findings suggest that the right upper lobe cavitary lesion is related to aspiration pneumonia due to the episode of unresponsiveness that prompted hospitalization and treatment in the intensive care unit. patient has no clinical evidence of ongoing lower respiratory tract infection. She has no leukocytosis, and CRP is low. She has received treatment with IV Unasyn followed by Augmentin p.o.. Plan is as follows: I would discontinue vancomycin and cefepime and continue with Augmentin for 1 more week. I would get a new two-view chest x-ray prior to discharging home. Regarding recent upper extremity DVT I would get a new venous study. Also consider SCDs for DVT prophylaxis. (3) Mass of pancreas: Code(s): K86.89 - Other specified diseases of pancreas Status: Acute (4) Deep vein thrombosis of upper extremity: Code(s): I82.629 - Acute embolism and thrombosis of deep veins of unspecified upper extremity Status: Acute (5) Hearing loss: Code(s): H91.90 - Unspecified hearing loss, unspecified ear Status: Acute (6) Dysphagia: Code(s): R13.10 - Dysphagia, unspecified Status: Acute (7) Pneumonia due to COVID-19 virus: Code(s): U07.1 - COVID-19; J12.82 - Pneumonia due to coronavirus disease 2019 Status: Acute (8) Chronic kidney disease: Code(s): N18.9 - Chronic kidney disease, unspecified Status: Acute Subjective Date/time seen: 08/11/21 08:51 Communication through written questions on board. Patient has had no new respiratory symptoms. She was concerned about left upper extremity blood clots she was diagnosed with recently. Review of Systems Review of Systems: All systems reviewed & are unremarkable except as noted in HPI and below Exam Narrative: GENERAL APPEARANCE: Well developed, well nourished, alert and cooperative, and appears to be in no acute distress While breathing ambient air SKIN:
[2021-08-11] MEDS: FUROSEMIDE 40 MG TABLET PO ×2 (09:17→17:55)
[2021-08-11] MEDS: hydrALAZINE HCL 25 MG TABLET PO ×3 (09:17→17:55)
[2021-08-11] MEDS: TIZANIDINE HCL 2 MG TABLET PO (09:17)
[2021-08-11] MEDS: cloNIDine HCL 0.2 MG TABLET PO ×2 (09:17→17:55)
[2021-08-11] MEDS: INSULIN GLARGINE (*BKC) 100 UNITS/ML 10 UNITS SUB-Q (09:18)
[2021-08-11] MEDS: lisinopriL 5 MG TABLET PO (09:18)
[2021-08-11] MEDS: GABAPENTIN 100 MG CAPSULE PO ×2 (09:18→17:55)
[2021-08-11] MEDS: SPIRONOLACTONE 12.5 MG TABLET PO (09:18)
[2021-08-11] MEDS: METOPROLOL TARTRATE 50 MG TAB PO ×2 (09:18→20:34)
[2021-08-11] MEDS: DOCUSATE SODIUM 100 MG CAPSULE PO (09:18)
[2021-08-11] MEDS: BRIMONIDINE TARTRATE 0.15% 5 ML OPHTH SOLN 1 DROP EACH EYE ×2 (09:19→17:56)
[2021-08-11] MEDS: OXYMETAZOLINE HCL 0.05% NAS 15 ML BTL (*BKC) 1 SPRAY NASAL ×2 (09:24→20:35)
[2021-08-11] MEDS: NEOMYCIN/POLYMYXIN/BACITRACIN OINTMENT 15 GM TUBE 1 APPLIC TOPICAL ×2 (09:24→20:35)
[2021-08-11 09:36] LABS: Glucose Point of Care 133 mg/dl (65-105)
[2021-08-11] MEDS: SALINE 0.65% NAS SOLN 44 ML BTL 1 SPRAY NASAL ×2 (10:00→21:32)
[2021-08-11 12:11] LABS: Glucose Point of Care 215 mg/dl (65-105)
[2021-08-11] MEDS: INSULIN ASPART (*BKC) 100 UNITS/ML SUB-Q ×2 (12:25→17:58)
--- NOTE | 2021-08-11 12:41 | PM.IMPN ---
Progress Note: A&P Assessment and Plan (1) Cough with hemoptysis: Code(s): R04.2 - Hemoptysis Status: Acute (2) Lung mass: Code(s): R91.8 - Other nonspecific abnormal finding of lung field Status: Acute (3) Mass of pancreas: Code(s): K86.89 - Other specified diseases of pancreas Status: Acute (4) Anemia: Code(s): D64.9 - Anemia, unspecified Status: Acute (5) Deep vein thrombosis of upper extremity: Code(s): I82.629 - Acute embolism and thrombosis of deep veins of unspecified upper extremity Status: Acute (6) Obstructive sleep apnea: Code(s): G47.33 - Obstructive sleep apnea (adult) (pediatric) Status: Acute (7) Epistaxis due to trauma: Code(s): R04.0 - Epistaxis Status: Acute (8) HTN (hypertension): Code(s): I10 - Essential (primary) hypertension Status: Acute (9) Atrial fibrillation: Code(s): I48.91 - Unspecified atrial fibrillation Status: Acute (10) Acute blood loss anemia: Code(s): D62 - Acute posthemorrhagic anemia Status: Acute (11) Diastolic congestive heart failure: Code(s): I50.30 - Unspecified diastolic (congestive) heart failure Status: Acute (12) Diabetes mellitus: Code(s): E11.9 - Type 2 diabetes mellitus without complications Status: Acute (13) DKA (diabetic ketoacidosis): Code(s): E11.10 - Type 2 diabetes mellitus with ketoacidosis without coma Status: Acute (14) Pneumonia due to COVID-19 virus: Code(s): U07.1 - COVID-19; J12.82 - Pneumonia due to coronavirus disease 2019 Status: Acute Additional Plan # hemoptyiss /hematemesis: i suspect she has an ongoing epistaxis leading to this. she was recently had issues with the same requiring cautery and gelfoal placement. This however got worsened with recent anticoagulation. will consult ENT for possibly cauterisation. I do not think this is coming from her lung as she is not reporting a lot of symtpoms related to coughing but she reprots something comes to her throat and she spits it out. will unfortunately have to hold her anticoagulation until further treatment and evaluation of her bleeding source. GI workup can also be underplayed if the bleeding persists. she is on nasal cannula oxygen which can also cause the bleeding. may use mask if needed. she actualy is not on oxygen prior to this and only placed tonight as she has KAYLA and uses cpap at night I will add afrin nasal spray in the interim for her epistaxis. Unfortunately have to hold her lovenox or anticoagulation due to current ongoing bleeding issue. She does not have thrombocytopenia and do not suspect underlying DIC or HIT TTP as an etiology. Once bleeding issues or when it resolves, placing back on anticoagulation will be ideal. she likely has risk factors for thrombosis due to this new masses # Right apical cavitary mass; infectious vs malignant. ct from 2018 did not have this finding . she is noted to be a never smoker.likely needs biopsy to further evaluate. pulmonary and oncology has been consulted from the ED. TB Gold test # Left lower lobe pneumonia: unclear if these are residual from her recent COVID pneumonia. will place on antibiotics empirically for HCAP due to recent hx. get sputum culture. 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 will get CA 19-9. GI has been consulted. will need further evaluation per GI. # hhx of Atrial fibrillation in her recent admission, seen by wave soldering machine operator at [facility] not on anticoagulation due to bleed and anemia on metoprolol . currently in sinus rhythm. # hypertension on metoprolol Lasix clonidine hydralazine # Recent encephalopathy secondary to DKA/dehdyraton/vega/hypernatremia: seems reolved. mri reviewed from recent admission. # dysphagia: speech to continue to follow. # hypernatremia: recent: this has resolved. # hearing loss bilaterally chronic # type 2 diabetes on insulin continue basal bolus with Accu-Puja
[2021-08-11 13:22] LABS: NIL 0.04 IU/mL; Quantiferon TB Plus, 1T NEGATIVE (NEGATIVE); TB1-NIL <0.00 IU/mL
[2021-08-11 16:50] LABS: Glucose Point of Care 227 mg/dl (65-105)
[2021-08-11] MEDS: LATANOPROST 0.005% OP SOLN 2.5 ML BTL 1 DROP EACH EYE (20:34)
[2021-08-11] MEDS: SIMVASTATIN 20 MG TABLET PO (20:34)
[2021-08-11] MEDS: AMOXICILLIN/CLAVULANATE K 875-125 MG TAB 1 TABLET PO (20:34)
[2021-08-11] MEDS: INSULIN GLARGINE (*BKC) 100 UNITS/ML SUB-Q (21:12)
[2021-08-11 21:17] LABS: Glucose Point of Care 139 mg/dl (65-105)
[2021-08-12] VITALS (11 sets, daily range): BP systolic 101–111; BP diastolic 60–64; PULSE 57–71; RESP 16–18; TEMP 35.8–36.4; O2SAT 96–100
[2021-08-12 05:46] LABS: CA 19-9 13 U/mL (<34)
[2021-08-12 07:05] LABS: Alanine Aminotransferase 36 U/L (4-35); Albumin Level 2.7 g/dL (3.5-5.1); Alkaline Phosphatase 80 U/L (38-126); Anion Gap 7 mmol/L (8-16); Aspartate Amino Transferase 32 U/L (14-36); Bilirubin,Total 0.2 mg/dL (0.2-1.3); Blood Urea Nitrogen 28 mg/dL (7-17); Calcium 7.3 mg/dL (8.4-10.2); Carbon Dioxide 29 mmol/L (22-30); Chloride 98 mmol/L (98-107); Estimated CRCL calculation 26 ml/min; Estimated Glomerular Filt Rate 27; Glucose 70 mg/dL (65-110); Potassium 3.8 mmol/L (3.4-5.0); Sodium 134 mmol/L (137-145)
[2021-08-12 07:30] LABS: Glucose Point of Care 66 mg/dl (65-105)
[2021-08-12] MEDS: AMOXICILLIN/CLAVULANATE K 875-125 MG TAB 1 TABLET PO ×2 (08:05→20:52)
[2021-08-12] MEDS: TIZANIDINE HCL 2 MG TABLET PO (08:05)
[2021-08-12] MEDS: BRIMONIDINE TARTRATE 0.15% 5 ML OPHTH SOLN 1 DROP EACH EYE ×2 (08:05→16:54)
[2021-08-12] MEDS: DOCUSATE SODIUM 100 MG CAPSULE PO (08:05)
[2021-08-12] MEDS: METOPROLOL TARTRATE 50 MG TAB PO ×2 (08:06→20:52)
[2021-08-12] MEDS: GABAPENTIN 100 MG CAPSULE PO ×2 (08:06→16:55)
[2021-08-12] MEDS: hydrALAZINE HCL 25 MG TABLET PO ×3 (08:06→16:54)
[2021-08-12] MEDS: FUROSEMIDE 40 MG TABLET PO ×2 (08:06→16:55)
[2021-08-12] MEDS: SPIRONOLACTONE 12.5 MG TABLET PO (08:06)
[2021-08-12] MEDS: cloNIDine HCL 0.2 MG TABLET PO ×2 (08:06→16:54)
[2021-08-12] MEDS: lisinopriL 5 MG TABLET PO (08:06)
[2021-08-12] MEDS: OXYMETAZOLINE HCL 0.05% NAS 15 ML BTL (*BKC) 1 SPRAY NASAL ×2 (08:12→20:53)
[2021-08-12 08:13] LABS: Glucose Point of Care 74 mg/dl (65-105)
[2021-08-12] MEDS: NEOMYCIN/POLYMYXIN/BACITRACIN OINTMENT 15 GM TUBE 1 APPLIC TOPICAL ×2 (08:13→20:53)
[2021-08-12 08:22] LABS: Glucose Point of Care 120 mg/dl (65-105)
[2021-08-12 08:29] LABS: Hematocrit 29.9 % (37.0-47.0); Mean Corpuscular HGB Conc 30.1 g/dl (32-36); Mean Corpuscular Hemoglobin 29.2 pg (26-34); Mean Corpuscular Volume 97.1 fl (80-100); Mean Platelet Volume 11.4 fl (7.4-10.4); Platelet Count Result 300 k/mm3 (150-375); Red Blood Count 3.08 M/mm3 (4.2-5.4); Red Cell Distribution Width 16.3 % (11.5-14.5); White Blood Count 6.6 K/mm3 (4.5-10.0)
--- NOTE | 2021-08-12 09:54 | PM.PNPUL ---
Progress Note: A&P Additional Plan 71-year-old female with history of diabetes, was recently hospitalized at another hospital with 1 episode of unresponsiveness and acute respiratory failure related to DKA and pneumonia. Pneumonia could be due to COVID 19 and/or aspiration pneumonia for which she was treated with Unasyn IV followed by Augmentin p.o.. The patient presented with what is reported as hemoptysis although she has had no episodes of coughing up blood. Per RN, the patient was spitting out blood rather than coughing up blood which makes epistaxis very likely. Of note, she recently had recurrent epistaxis for which she required operative intervention by ENT in the OR during hospitalization at [facility]. On the admission chest CT, the patient has cavitary lesion in the apical segment of the right upper lobe as well as infiltrates in the left lung. Given the history of bilateral patchy infiltrates during last hospitalization, and also history of unresponsiveness, this could be possibly related to aspiration pneumonia. Recent chest radiographic images taken at [facility] are now available for review. On the admission chest x-ray on June 25, there was no evidence of right right upper lobe infiltrate. On a subsequent chest x-ray taken on July 07, there was a right upper lobe nodular density measuring 3.5 cm in its largest dimension. On the chest CT done at [facility] on August 08, this right upper lobe cavitary lesion was now smaller measuring less than 3 cm. On yesterday's film, the right upper lobe lesion was even smaller when compared to the x-ray taken at [facility] on July 07. These findings suggest that the right upper lobe cavitary lesion is related to aspiration pneumonia due to the episode of unresponsiveness that prompted hospitalization and treatment in the intensive care unit. patient has no clinical evidence of ongoing lower respiratory tract infection. She has no leukocytosis, and CRP is low. She has received treatment with IV Unasyn followed by Augmentin p.o.. TB test negative. Plan is as follows: I would continue with Augmentin for 1 more week. okay to discharge patient home from a respiratory standpoint. The patient has obstructive sleep apnea and has been on CPAP at night. She told me she uses CPAP every night. On physical exam she still has crackles related to recent left lower lobe pneumonia for which she was treated at the other facility. O2 saturation is adequate at rest. She may have oxyhemoglobin desaturation with activities. I would do a home evaluation prior to discharging. Regarding the left upper extremity DVT, which is still present on last venous study, the patient has been treated with Lovenox full dose for more than several days. I would transition her to direct anticoagulant p.o. Review of chest x-rays done during her recent hospitalization at [facility] showed that the patient had a central line through left subclavian vein which may explain the left upper extremity DVT. Regarding the right upper lobe cavitary lesion, the patient will need to return to pulmonary clinic and have repeat chest x-ray in approximately 3 weeks. That was communicated to the patient who verbalized understanding. We will sign off. Call with any questions. (3) Mass of pancreas: Code(s): K86.89 - Other specified diseases of pancreas Status: Acute (4) Deep vein thrombosis of upper extremity: Code(s): I82.629 - Acute embolism and thrombosis of deep veins of unspecified upper extremity Status: Acute (5) Hearing loss: Code(s): H91.90 - Unspecified hearing loss, unspecified ear Status: Acute (6) Dysphagia: Code(s): R13.10 - Dysphagia, unspecified Status: Acute (7) Pneumonia due to COVID-19 virus: Code(s): U07.1 - COVID-19; J12.82 - Pneumonia due to coronavirus disease 2019 Status
[2021-08-12] MEDS: SALINE 0.65% NAS SOLN 44 ML BTL 1 SPRAY NASAL ×3 (10:14→20:53)
--- NOTE | 2021-08-12 11:01 | PM.IMPN ---
Progress Note: A&P Additional Plan # hemoptyiss /hematemesis: i suspect she has an ongoing epistaxis leading to this. she was recently had issues with the same requiring cautery and gelfoal placement. This however got worsened with recent anticoagulation. will consult ENT for possibly cauterisation. I do not think this is coming from her lung as she is not reporting a lot of symtpoms related to coughing but she reprots something comes to her throat and she spits it out. will unfortunately have to hold her anticoagulation until further treatment and evaluation of her bleeding source. GI workup can also be underplayed if the bleeding persists. she is on nasal cannula oxygen which can also cause the bleeding. may use mask if needed. she actualy is not on oxygen prior to this and only placed tonight as she has KAYLA and uses cpap at night I will add afrin nasal spray in the interim for her epistaxis. Unfortunately have to hold her lovenox or anticoagulation due to current ongoing bleeding issue. She does not have thrombocytopenia and do not suspect underlying DIC or HIT TTP as an etiology. Once bleeding issues or when it resolves, placing back on anticoagulation will be ideal. she likely has risk factors for thrombosis due to this new masses # Right apical cavitary mass; infectious vs malignant. ct from 2018 did not have this finding . she is noted to be a never smoker.likely needs biopsy to further evaluate. pulmonary and oncology has been consulted from the ED. TB Gold test # Left lower lobe pneumonia: unclear if these are residual from her recent COVID pneumonia. will place on antibiotics empirically for HCAP due to recent hx. get sputum culture. 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 will get CA 19-9. GI has been consulted. will need further evaluation per GI. # hhx of Atrial fibrillation in her recent admission, seen by family sociologist at [facility] not on anticoagulation due to bleed and anemia on metoprolol . currently in sinus rhythm. # hypertension on metoprolol Lasix clonidine hydralazine # Recent encephalopathy secondary to DKA/dehdyraton/erni/hypernatremia: seems reolved. mri reviewed from recent admission. # dysphagia: speech to continue to follow. # hypernatremia: recent: this has resolved. # hearing loss bilaterally chronic # type 2 diabetes on insulin continue basal bolus with Accu-Cheks monitoring here recently admitted with DKA with blood glucose of 987 # acute blood loss anemia needing transfusion: montior h and h. # epistaxis needing cauterization seen by ENT and [facility] # lower extremity edema on Lasix doppler was negative fro dvt rrecenlty. # KAYLA on CPAP at home # CKD 3: at baseline cr. recent ERIN with creatinine up to 4. # diastolic congestive heart failure # recent COVID-19 pneumonia 06/24/2021 # left upper extremity DVT diagnosed 08/04/2021 was recently treated with Lovenox, now on hold until bleeding issues resovled. # physical deconditioning PT OT # code status: full # DVT proph: SCDs 08/09/21 doing ok no complaints pending consults cont current care no bleeding at present from nose son and pt aware of imaging findings TB tests pending, airborne precautions initiated EUS for bx? 08/10/2021 Interval history patient is very hard of hearing, patient present with shortness of breath, there is a cavitary mass lesion concerning for pneumonia as well as malignancy is also concern the patient may have TB however under sheriff is does not suspect and patient is off isolation, once clinically stable patient will have a bronchoscopy to further evaluate, CTA scan of the chest showed concerning mass along pancreas possibly pancreatic carcinoma will consult oncologist for further recommendation. patient is seen by pulmonology and appreciate. 08/11/2021 Interval history patient is very hard of hearing, patient present with shortness of breath, there is a cavitary mass lesion concerning for aspiration pneumonia as well as malignancy is also concern t
[2021-08-12 11:40] LABS: Glucose Point of Care 259 mg/dl (65-105)
[2021-08-12] MEDS: INSULIN ASPART (*BKC) 100 UNITS/ML SUB-Q (12:15)
[2021-08-12 16:27] LABS: Glucose Point of Care 180 mg/dl (65-105)
[2021-08-12 20:17] LABS: Glucose Point of Care 188 mg/dl (65-105)
[2021-08-12] MEDS: INSULIN GLARGINE (*BKC) 100 UNITS/ML SUB-Q (20:51)
[2021-08-12] MEDS: ENOXAPARIN 100 MG/ML SYRINGE SUB-Q (20:52)
[2021-08-12] MEDS: LATANOPROST 0.005% OP SOLN 2.5 ML BTL 1 DROP EACH EYE (20:52)
[2021-08-13] VITALS (13 sets, daily range): BP systolic 105–149; BP diastolic 62–84; PULSE 60–85; RESP 16–18; TEMP 36.1–37; O2SAT 96–98
[2021-08-13 06:52] LABS: Hemoglobin 9.4 g/dL (12.0-15.0); Mean Corpuscular HGB Conc 30.3 g/dl (32-36); Mean Corpuscular Hemoglobin 29.4 pg (26-34); Mean Corpuscular Volume 96.9 fl (80-100); Mean Platelet Volume 11.5 fl (7.4-10.4); Platelet Count Result 284 k/mm3 (150-375); Red Cell Distribution Width 16.7 % (11.5-14.5)
[2021-08-13 07:03] LABS: Alanine Aminotransferase 31 U/L (4-35); Albumin Level 3.3 g/dL (3.5-5.1); Alkaline Phosphatase 118 U/L (38-126); Anion Gap 5 mmol/L (8-16); Aspartate Amino Transferase 24 U/L (14-36); Bilirubin,Total 0.5 mg/dL (0.2-1.3); Blood Urea Nitrogen 29 mg/dL (7-17); Calcium 8.1 mg/dL (8.4-10.2); Carbon Dioxide 33 mmol/L (22-30); Chloride 99 mmol/L (98-107); Estimated CRCL calculation 24 ml/min; Estimated Glomerular Filt Rate 24; Glucose 155 mg/dL (65-110); Potassium 3.9 mmol/L (3.4-5.0); Sodium 137 mmol/L (137-145)
[2021-08-13 08:15] LABS: Glucose Point of Care 152 mg/dl (65-105)
[2021-08-13] MEDS: METOPROLOL TARTRATE 50 MG TAB PO ×2 (09:06→21:14)
[2021-08-13] MEDS: hydrALAZINE HCL 25 MG TABLET PO ×3 (09:06→17:01)
[2021-08-13] MEDS: DOCUSATE SODIUM 100 MG CAPSULE PO (09:06)
[2021-08-13] MEDS: TIZANIDINE HCL 2 MG TABLET PO (09:06)
[2021-08-13] MEDS: GABAPENTIN 100 MG CAPSULE PO ×2 (09:06→16:59)
[2021-08-13] MEDS: cloNIDine HCL 0.2 MG TABLET PO ×2 (09:07→16:59)
[2021-08-13] MEDS: SPIRONOLACTONE 12.5 MG TABLET PO (09:07)
[2021-08-13] MEDS: FUROSEMIDE 40 MG TABLET PO ×2 (09:08→16:59)
[2021-08-13] MEDS: AMOXICILLIN/CLAVULANATE K 875-125 MG TAB 1 TABLET PO ×2 (09:08→21:13)
[2021-08-13] MEDS: BRIMONIDINE TARTRATE 0.15% 5 ML OPHTH SOLN 1 DROP EACH EYE ×2 (09:08→17:01)
[2021-08-13] MEDS: lisinopriL 5 MG TABLET PO (09:09)
[2021-08-13] MEDS: OXYMETAZOLINE HCL 0.05% NAS 15 ML BTL (*BKC) 1 SPRAY NASAL ×2 (09:10→21:17)
[2021-08-13] MEDS: NEOMYCIN/POLYMYXIN/BACITRACIN OINTMENT 15 GM TUBE 1 APPLIC TOPICAL ×2 (09:10→21:15)
[2021-08-13] MEDS: SALINE 0.65% NAS SOLN 44 ML BTL 1 SPRAY NASAL ×4 (09:10→21:18)
[2021-08-13] MEDS: INSULIN GLARGINE (*BKC) 100 UNITS/ML 10 UNITS SUB-Q (09:11)
[2021-08-13] MEDS: ENOXAPARIN 100 MG/ML SYRINGE SUB-Q ×2 (10:18→21:13)
[2021-08-13 11:52] LABS: Glucose Point of Care 228 mg/dl (65-105)
[2021-08-13] MEDS: INSULIN ASPART (*BKC) 100 UNITS/ML SUB-Q ×2 (12:11→17:01)
--- NOTE | 2021-08-13 14:54 | PM.PNGS ---
Progress Note: A&P Assessment and Plan (1) Epistaxis: Code(s): R04.0 - Epistaxis Status: Acute Assessment and Plan: Frequent nasal saline spray and antibiotic ointment to the nasal passages. No instrumentation. Packing removed. Ointment 2-3 times per day. [place] 6 times per day follow up with me as an outpatient. Subjective Subjective Date/Time Seen: 08/13/21 14:54 Objective Data Vital Signs Vital Signs: Vital Signs - 24 hr 08/12/21 16:00 08/12/21 20:00 08/12/21 20:52 Temperature Pulse Rate 64 71 68 Respiratory Rate Blood Pressure Pulse Oximetry 08/12/21 21:04 08/13/21 00:00 08/13/21 04:00 Temperature 36.4 C L Pulse Rate 71 64 62 Respiratory Rate 16 Blood Pressure 101/62 Pulse Oximetry 98 08/13/21 05:32 08/13/21 08:00 08/13/21 08:56 Temperature 36.1 C L Pulse Rate 71 72 Respiratory Rate 18 Blood Pressure 149/84 H Pulse Oximetry 97 96 08/13/21 09:06 08/13/21 12:00 08/13/21 12:09 Temperature Pulse Rate 85 60 Respiratory Rate Blood Pressure 105/71 Pulse Oximetry Intake/Output Intake/Output: Intake & Output 08/10/21 08/11/21 08/12/21 08/13/21 23:59 23:59 23:59 23:59 Intake Total 2185 1205 640 360 Output Total 439 403 4761 1550 Balance 1360 668 -137 -1190 Meds/Results Medications: Active Medications Generic Name Dose Route Start Last Admin Trade Name Freq PRN Reason Stop Dose Admin Acetaminophen 650 mg 08/09/21 01:40 Acetaminophen 325 Mg Tablet BY MOUTH Q6H PRN Fever Or Pain Albuterol 2.5 mg 08/08/21 23:35 Albuterol Sulfate Neb 2.5 Mg/3 Ml Inh INHALATION QID PRN Shortness Of Breath Or Wheezing Amoxicillin/Clavulanate Potassium 1 tablet 08/11/21 21:00 08/13/21 09:08 Amoxicillin/Clavulanate K 875-125 Mg Tab PO 1 tablet Q12HR RUBINA Administration Brimonidine Tartrate 1 drop 08/09/21 09:00 08/13/21 09:08 Brimonidine Tartrate 0.15% 5 Ml Ophth Soln EACH EYE 1 drop BID RUBINA Administration Clonidine HCl 0.2 mg 08/09/21 09:00 08/13/21 09:07 Clonidine Hcl 0.2 Mg Tablet PO 0.2 mg BID RUBINA Administration Dextrose 12.5 gm 08/09/21 15:05 Dextrose 50% 25 Gm/50 Ml Syringe IV PUSH PRN PRN Hypoglycemia Protocol Docusate Sodium 100 mg 08/09/21 09:00 08/13/21 09:06 Docusate Sodium 100 Mg Capsule PO 100 mg DAILY RUBINA Administration Enoxaparin Sodium 100 mg 08/12/21 21:00 08/13/21 10:18 Enoxaparin 100 Mg/Ml Syringe SUB-Q 100 mg Q12HR RUBINA Administration Famotidine 20 mg 08/08/21 23:35 08/09/21 07:59 Famotidine 20 Mg Tablet PO 20 mg BID PRN Administration Heartburn Furosemide 40 mg 08/09/21 09:00 08/13/21 09:08 Furosemide 40 Mg Tablet PO 40 mg BID RUBINA Administration Gabapentin 100 mg 08/09/21 09:00 08/13/21 09:06 Gabapentin 100 Mg Capsule PO 100 mg BID RUBINA Administration Glucagon 1 mg 08/09/21 15:05 Glucagon For Inj 1 Mg Vial IM PRN PRN Hypoglycemia Protocol Glucose 15 gm 08/09/21 15:05 Glucose Oral Gel 15 Gm Of Glucse In 37.5 Gm Tube PO PRN PRN Hypoglycemia Protocol Guaifenesin 200 mg 08/09/21 01:45 Guaifenesin 200 Mg/10 Ml Udc PO Q6H PRN Cough Hydralazine HCl 25 mg 08/09/21 08:00 08/13/21 12:11 Hydralazine Hcl 25 Mg Tablet PO 25 mg TIDWM RUBINA Administration Dextrose 1,000 mls @ 100 mls/hr 08/09/21 15:05 Dextrose 5% 1,000 Ml IVPB PRN PRN Hypoglycemia Protocol Insulin Aspart 3 - 6 units 08/09/21 17:00 08/13/21 12:11 Insulin Aspart (*Bkc) 100 Units/Ml SUB-Q 3 units TIDWM RUBINA Administration Protocol Insulin Glargine 5 units 08/08/21 21:00 08/12/21 20:51 Insulin Glargine (*Bkc) 100 Units/Ml SUB-Q 5 units HS RUBINA Administration Insulin Glargine 10 units 08/09/21 09:00 08/13/21 09:11 Insulin Glargine (*Bkc) 100 Units/Ml SUB-Q 10 units DAILY RUBINA Administration [place]
--- NOTE | 2021-08-13 14:56 | P.PCNBED_ITS ---
Procedures Other Procedures Procedure 1: Other Procedure: Nasal endoscopy with debridement bilateral. Dx epistaxis/nasal packing/nasalcrusting. Consent obtained. Afrin and lidocaine applied. 12 [place]ian suction utilized. Left septum cauterized. No active bleeding. Patient cavities.
--- NOTE | 2021-08-13 15:01 | WPDGIPROGNO ---
Progress Note: A&P Assessment and Plan (1) Mass of pancreas: Code(s): K86.89 - Other specified diseases of pancreas Status: Acute Assessment and Plan: CT scan reveals a mass in the tail of the pancreas. This is not amenable to ERCP at our institution. I would agree with Dr. Wisdom his note from several days ago 1 option would be endoscopic ultrasound obtained tertiary care center such as [facility]. An alternative might be CT-guided percutaneous biopsy under the direction of the radiology service. Patient will need to be off of all anticoagulation. I discussed this with Dr. Allen. And he will contact Radiology to see if they are amenable to this percutaneous CT-guided biopsy. (2) Epistaxis: Code(s): R04.0 - Epistaxis Status: Acute Assessment and Plan: Epistaxis being addressed by ENT service this likely was the source of anemia identified at time of admission. Subjective Date/time seen: 08/13/21 15:01 Patient examined and chart reviewed. I was asked to see patient for endoscopic ultrasound and biopsy of pancreatic mass. Patient having epistaxis cauterized by entered service at present. No specific abdominal pain described. Review of Systems Review of Systems: All systems reviewed & are unremarkable except as noted in HPI and below Exam Narrative: HEENT exam reveals no icterus. Lungs are clear. Heart without murmur. Abdomen is soft nontender with no organomegaly. Objective Data Vital Signs Vital Signs: Vital Signs - 24 hr 08/12/21 16:00 08/12/21 20:00 08/12/21 20:52 Temperature Pulse Rate 64 71 68 Respiratory Rate Blood Pressure Pulse Oximetry 08/12/21 21:04 08/13/21 00:00 08/13/21 04:00 Temperature 97.5 F L Pulse Rate 71 64 62 Respiratory Rate 16 Blood Pressure 101/62 Pulse Oximetry 98 08/13/21 05:32 08/13/21 08:00 08/13/21 08:56 Temperature 97.0 F L Pulse Rate 71 72 Respiratory Rate 18 Blood Pressure 149/84 H Pulse Oximetry 97 96 08/13/21 09:06 08/13/21 12:00 08/13/21 12:09 Temperature Pulse Rate 85 60 Respiratory Rate Blood Pressure 105/71 Pulse Oximetry Intake/Output Intake/Output: Intake & Output 08/10/21 08/11/21 08/12/21 08/13/21 23:59 23:59 23:59 23:59 Intake Total 2185 1205 640 360 Output Total 912 757 8318 1550 Balance 1360 067 -898 -3997 Meds/Results Medications: Active Medications Generic Name Dose Route Start Last Admin Trade Name Freq PRN Reason Stop Dose Admin Acetaminophen 650 mg 08/09/21 01:40 Acetaminophen 325 Mg Tablet BY MOUTH Q6H PRN Fever Or Pain Albuterol 2.5 mg 08/08/21 23:35 Albuterol Sulfate Neb 2.5 Mg/3 Ml Inh INHALATION QID PRN Shortness Of Breath Or Wheezing Amoxicillin/Clavulanate Potassium 1 tablet 08/11/21 21:00 08/13/21 09:08 Amoxicillin/Clavulanate K 875-125 Mg Tab PO 1 tablet Q12HR RUBINA Administration Brimonidine Tartrate 1 drop 08/09/21 09:00 08/13/21 09:08 Brimonidine Tartrate 0.15% 5 Ml Ophth Soln EACH EYE 1 drop BID RUBINA Administration Clonidine HCl 0.2 mg 08/09/21 09:00 08/13/21 09:07 Clonidine Hcl 0.2 Mg Tablet PO 0.2 mg BID RUBINA Administration Dextrose 12.5 gm 08/09/21 15:05 Dextrose 50% 25 Gm/50 Ml Syringe IV PUSH PRN PRN Hypoglycemia Protocol Docusate Sodium 100 mg 08/09/21 09:00 08/13/21 09:06 Docusate Sodium 100 Mg Capsule PO 100 mg DAILY RUBINA Administration Enoxaparin Sodium 100 mg 08/12/21 21:00 08/13/21 10:18 Enoxaparin 100 Mg/Ml Syringe SUB-Q 100 mg Q12HR RUBINA Administration Famotidine 20 mg 08/08/21 23:35 08/09/21 07:59 Famotidine 20 Mg Tablet PO 20 mg BID PRN Administration Heartburn Furosemide 40 mg 08/09/21 09:00 08/13/21 09:08 Furosemide 40 Mg Tablet PO 40 mg BID RUBINA Administration Gabapentin 100 mg 08/09/21 09:00 08/13/21 09:06 Gabapentin 100 Mg Capsule PO 100 mg BID SC
[2021-08-13 16:43] LABS: Glucose Point of Care 207 mg/dl (65-105)
[2021-08-13] MEDS: LATANOPROST 0.005% OP SOLN 2.5 ML BTL 1 DROP EACH EYE (21:14)
[2021-08-13] MEDS: INSULIN GLARGINE (*BKC) 100 UNITS/ML SUB-Q (21:14)
[2021-08-13] MEDS: SIMVASTATIN 20 MG TABLET PO (21:15)
[2021-08-13 21:48] LABS: Glucose Point of Care 166 mg/dl (65-105)
[2021-08-14] VITALS (14 sets, daily range): BP systolic 103–121; BP diastolic 56–69; PULSE 60–67; RESP 12–22; TEMP 36–37.6; O2SAT 96–98
[2021-08-14] MEDS: SALINE 0.65% NAS SOLN 44 ML BTL 1 SPRAY NASAL ×5 (05:20→20:26)
[2021-08-14 05:57] LABS: Hematocrit 27.5 % (37.0-47.0); Hemoglobin 8.2 g/dL (12.0-15.0); Mean Corpuscular HGB Conc 29.8 g/dl (32-36); Mean Corpuscular Hemoglobin 28.5 pg (26-34); Mean Corpuscular Volume 95.5 fl (80-100); Mean Platelet Volume 11.4 fl (7.4-10.4); Platelet Count Result 273 k/mm3 (150-375); Red Blood Count 2.88 M/mm3 (4.2-5.4); Red Cell Distribution Width 16.7 % (11.5-14.5); White Blood Count 6.2 K/mm3 (4.5-10.0)
[2021-08-14 06:05] LABS: Alanine Aminotransferase 24 U/L (4-35); Albumin Level 3.1 g/dL (3.5-5.1); Alkaline Phosphatase 103 U/L (38-126); Anion Gap 5 mmol/L (8-16); Aspartate Amino Transferase 22 U/L (14-36); Bilirubin,Total 0.5 mg/dL (0.2-1.3); Blood Urea Nitrogen 30 mg/dL (7-17); Carbon Dioxide 33 mmol/L (22-30); Chloride 99 mmol/L (98-107); Estimated CRCL calculation 25 ml/min; Estimated Glomerular Filt Rate 25; Glucose 166 mg/dL (65-110); Potassium 3.6 mmol/L (3.4-5.0); Sodium 137 mmol/L (137-145)
[2021-08-14 08:05] LABS: Glucose Point of Care 171 mg/dl (65-105)
[2021-08-14] MEDS: OXYMETAZOLINE HCL 0.05% NAS 15 ML BTL (*BKC) 1 SPRAY NASAL ×2 (08:33→20:27)
[2021-08-14] MEDS: BRIMONIDINE TARTRATE 0.15% 5 ML OPHTH SOLN 1 DROP EACH EYE ×2 (08:33→16:58)
[2021-08-14] MEDS: cloNIDine HCL 0.2 MG TABLET PO ×2 (08:34→16:58)
[2021-08-14] MEDS: NEOMYCIN/POLYMYXIN/BACITRACIN OINTMENT 15 GM TUBE 1 APPLIC TOPICAL ×2 (08:34→20:26)
[2021-08-14] MEDS: lisinopriL 5 MG TABLET PO (08:34)
[2021-08-14] MEDS: FUROSEMIDE 40 MG TABLET PO ×2 (08:34→16:59)
[2021-08-14] MEDS: METOPROLOL TARTRATE 50 MG TAB PO ×2 (08:34→20:26)
[2021-08-14] MEDS: GABAPENTIN 100 MG CAPSULE PO ×2 (08:34→16:59)
[2021-08-14] MEDS: hydrALAZINE HCL 25 MG TABLET PO ×3 (08:34→16:59)
[2021-08-14] MEDS: INSULIN GLARGINE (*BKC) 100 UNITS/ML 10 UNITS SUB-Q (08:35)
[2021-08-14] MEDS: DOCUSATE SODIUM 100 MG CAPSULE PO (08:35)
[2021-08-14] MEDS: SPIRONOLACTONE 12.5 MG TABLET PO (08:35)
[2021-08-14] MEDS: AMOXICILLIN/CLAVULANATE K 875-125 MG TAB 1 TABLET PO ×2 (08:35→20:26)
[2021-08-14] MEDS: TIZANIDINE HCL 2 MG TABLET PO (08:35)
[2021-08-14] MEDS: ENOXAPARIN 100 MG/ML SYRINGE SUB-Q ×2 (08:35→20:27)
[2021-08-14 11:40] LABS: Glucose Point of Care 239 mg/dl (65-105)
[2021-08-14] MEDS: INSULIN ASPART (*BKC) 100 UNITS/ML SUB-Q ×2 (11:49→16:59)
[2021-08-14 16:54] LABS: Glucose Point of Care 241 mg/dl (65-105)
[2021-08-14] MEDS: SIMVASTATIN 20 MG TABLET PO (20:26)
[2021-08-14] MEDS: LATANOPROST 0.005% OP SOLN 2.5 ML BTL 1 DROP EACH EYE (20:26)
[2021-08-14] MEDS: INSULIN GLARGINE (*BKC) 100 UNITS/ML SUB-Q (20:26)
[2021-08-14 20:37] LABS: Glucose Point of Care 238 mg/dl (65-105)
[2021-08-15] VITALS (7 sets, daily range): BP systolic 109–115; BP diastolic 64–70; PULSE 61–74; RESP 14–16; TEMP 36.1; O2SAT 96–98
[2021-08-15 06:05] LABS: Hematocrit 26.5 % (37.0-47.0); Mean Corpuscular HGB Conc 30.2 g/dl (32-36); Mean Corpuscular Hemoglobin 29.1 pg (26-34); Mean Corpuscular Volume 96.4 fl (80-100); Mean Platelet Volume 11.7 fl (7.4-10.4); Platelet Count Result 266 k/mm3 (150-375); Red Blood Count 2.75 M/mm3 (4.2-5.4); Red Cell Distribution Width 16.9 % (11.5-14.5); White Blood Count 6.5 K/mm3 (4.5-10.0)
[2021-08-15 07:11] LABS: Alanine Aminotransferase 23 U/L (4-35); Albumin Level 2.8 g/dL (3.5-5.1); Alkaline Phosphatase 91 U/L (38-126); Anion Gap 6 mmol/L (8-16); Aspartate Amino Transferase 30 U/L (14-36); Bilirubin,Total 0.6 mg/dL (0.2-1.3); Blood Urea Nitrogen 29 mg/dL (7-17); Carbon Dioxide 28 mmol/L (22-30); Chloride 101 mmol/L (98-107); Estimated CRCL calculation 30 ml/min; Estimated Glomerular Filt Rate 32; Glucose 161 mg/dL (65-110); Sodium 135 mmol/L (137-145)
[2021-08-15 07:56] LABS: Glucose Point of Care 156 mg/dl (65-105)
[2021-08-15] MEDS: METOPROLOL TARTRATE 50 MG TAB PO (08:36)
[2021-08-15] MEDS: AMOXICILLIN/CLAVULANATE K 875-125 MG TAB 1 TABLET PO (08:36)
[2021-08-15] MEDS: cloNIDine HCL 0.2 MG TABLET PO (08:36)
[2021-08-15] MEDS: DOCUSATE SODIUM 100 MG CAPSULE PO (08:36)
[2021-08-15] MEDS: lisinopriL 5 MG TABLET PO (08:36)
[2021-08-15] MEDS: FUROSEMIDE 40 MG TABLET PO (08:36)
[2021-08-15] MEDS: SPIRONOLACTONE 12.5 MG TABLET PO (08:36)
[2021-08-15] MEDS: hydrALAZINE HCL 25 MG TABLET PO ×2 (08:36→11:54)
[2021-08-15] MEDS: TIZANIDINE HCL 2 MG TABLET PO (08:36)
[2021-08-15] MEDS: ENOXAPARIN 100 MG/ML SYRINGE SUB-Q (08:37)
[2021-08-15] MEDS: BRIMONIDINE TARTRATE 0.15% 5 ML OPHTH SOLN 1 DROP EACH EYE (08:37)
[2021-08-15] MEDS: OXYMETAZOLINE HCL 0.05% NAS 15 ML BTL (*BKC) 1 SPRAY NASAL (08:37)
[2021-08-15] MEDS: INSULIN GLARGINE (*BKC) 100 UNITS/ML 10 UNITS SUB-Q (08:37)
[2021-08-15] MEDS: NEOMYCIN/POLYMYXIN/BACITRACIN OINTMENT 15 GM TUBE 1 APPLIC TOPICAL (08:37)
[2021-08-15] MEDS: GABAPENTIN 100 MG CAPSULE PO (08:37)
[2021-08-15] MEDS: SALINE 0.65% NAS SOLN 44 ML BTL 1 SPRAY NASAL (09:45)
--- NOTE | 2021-08-15 11:33 | PM.DS ---
DS: Admitting Diagnosis Discharge Date 08/15/2021 Admitting Diagnosis Chief Complaint: Hemoptysis DS: Discharge Diagnosis Discharge Diagnosis (1) Cough with hemoptysis: Code(s): R04.2 - Hemoptysis Status: Acute (2) Lung mass: Code(s): R91.8 - Other nonspecific abnormal finding of lung field Status: Acute (3) Mass of pancreas: Code(s): K86.89 - Other specified diseases of pancreas Status: Acute (4) Anemia: Code(s): D64.9 - Anemia, unspecified Status: Acute (5) Deep vein thrombosis of upper extremity: Code(s): I82.629 - Acute embolism and thrombosis of deep veins of unspecified upper extremity Status: Acute (6) Obstructive sleep apnea: Code(s): G47.33 - Obstructive sleep apnea (adult) (pediatric) Status: Acute (7) Epistaxis due to trauma: Code(s): R04.0 - Epistaxis Status: Acute (8) HTN (hypertension): Code(s): I10 - Essential (primary) hypertension Status: Acute (9) Atrial fibrillation: Code(s): I48.91 - Unspecified atrial fibrillation Status: Acute (10) Acute blood loss anemia: Code(s): D62 - Acute posthemorrhagic anemia Status: Acute (11) Diastolic congestive heart failure: Code(s): I50.30 - Unspecified diastolic (congestive) heart failure Status: Acute (12) Diabetes mellitus: Code(s): E11.9 - Type 2 diabetes mellitus without complications Status: Acute (13) DKA (diabetic ketoacidosis): Code(s): E11.10 - Type 2 diabetes mellitus with ketoacidosis without coma Status: Acute (14) Pneumonia due to COVID-19 virus: Code(s): U07.1 - COVID-19; J12.82 - Pneumonia due to coronavirus disease 2019 Status: Acute DS: Summary Hospital Course Reason for hospitalization: Chief Complaint: Hemoptysis Narrative: This is a 71-year-old female who presents from [facility] for hemoptysis/hematemesis. She was recently admitted for DKA along with COVID pneumonia from June 24 2021 was septic and was intubated during that admission. Patient improved and no extubated on 07/05/2021. She was subsequently discharged to rehabilitation on 07/30/2021. She was diagnosed with ERIN metabolic encephalopathy and has underlying history of type 2 diabetes hypertension congestive heart failure diastolic chronic anemia he had issues with ERIN with creatinine as high as 4 on admission with resolution by the time of discharge related to DKA and dehydration. During the hospital admission she also had episode of epistaxis for which ENT had seen and had bilateral nasal balloons in pay place. She subsequently required a trip to the OR for suction cautery to address multiple sites of bleeding bilaterally. Gelfoam was placed through the nasal cavity with subsequent resolution. During the rehabilitation she was diagnosed to have left upper extremity DVT for which he was started on Lovenox. She subsequently started having epistaxis and hemoptysis which she describes at something comes up in her throat and gets it out/spits it out. There was concern of hemoptysis/hematemesis in the ED for which further workup was done. She was found to have right lung cavitary mass concerning for malignancy but could be infectious as well there was patchy lung disease in the lingula left lower lobe concerning for pneumonia. There is also noted 7.8 cm mass at the tail pancreas concerning for primary pancreatic carcinoma. Her hemoglobin is around 8. During her previous admission she had dropped down to the point that she had required transfusion. Withhold findings above, she is getting admitted for further evaluation and management. Pulmonary, GI, Oncology has been consulted with regard to the findings of up. She is quite hard of hearing and a very poor historian likely related to her hearing. Hospital Course: # hemoptyiss /hematemesis: i suspect she has an ongoing epistaxis leading to this. she was recen
[2021-08-15 11:40] LABS: Glucose Point of Care 218 mg/dl (65-105)
[2021-08-15 11:44] LABS: EDCOVIDSCREEN Negative (Negative)
[2021-08-15] MEDS: INSULIN ASPART (*BKC) 100 UNITS/ML SUB-Q (11:54)
== END 2021-08-15 14:15 | DRG 204 ==
LOC: ANHED 19:01 → ANH3MEDSUR 21:09
PROVIDERS: Internal Medicine; Internal Medicine Hematology & Oncology; Internal Medicine Pulmonary Disease; Admitting Provider Internal Medicine; Emergency Provider Emergency Medicine; PCP Internal Medicine; Visit Provider Family Medicine
DX: R04.2 Hemoptysis (principal); J18.9 Pneumonia, unspecified organism; J69.0 Pneumonitis due to inhalation of food and vomit; K92.0 Hematemesis; D62 Acute posthemorrhagic anemia; I50.32 Chronic diastolic (congestive) heart failure; I13.0 Hypertensive heart and chronic kidney disease with heart failure and stage 1 through stage 4 chronic kidney disease, or unspecified chronic kidney disease; I82.A12 Acute embolism and thrombosis of left axillary vein; I82.B12 Acute embolism and thrombosis of left subclavian vein; R04.0 Epistaxis; U09.9 Post COVID-19 condition, unspecified; E11.22 Type 2 diabetes mellitus with diabetic chronic kidney disease; Z20.822 Contact with and (suspected) exposure to COVID-19; N18.30 Chronic kidney disease, stage 3 unspecified; E11.42 Type 2 diabetes mellitus with diabetic polyneuropathy; R91.8 Other nonspecific abnormal finding of lung field; K86.89 Other specified diseases of pancreas; G47.33 Obstructive sleep apnea (adult) (pediatric); I48.91 Unspecified atrial fibrillation; R13.10 Dysphagia, unspecified; Z79.01 Long term (current) use of anticoagulants; H91.93 Unspecified hearing loss, bilateral
CPT/HCPCS: 36415; 71046; 71275; 80053; 80202; 82607; 82728; 82746; 82948; 83540; 83550; 83690; 83880; 84484; 85014; 85018; 85025; 85027; 85610; 85652; 85730; 86140; 86301; 86480; 86850; 86900; 86901; 87070; 87205; 87426; 93005; 93970; 97110; 97161; 97166; 97530; 97535; 99285; A9270; C9803; J0692; J1650; J1756; J1815; J3370; Q9967